=== PATIENT | male | born 1965 | race Caucasian/White ===

== ENCOUNTER 2021-07-03 09:23 | Inpatient (IN) | payer OTHER, SELFPAY ==
[2021-07-03] VITALS (7 sets, daily range): BP systolic 116–148; BP diastolic 46–104; PULSE 55–67; RESP 16–18; TEMP 36.1–36.7; O2SAT 98–100; BMI 26.4
--- NOTE | ~2021-07-03 | CT_ITS ---
EXAMINATION: CT ABDOMEN AND PELVIS WITH CONTRAST CLINICAL INFORMATION: Abdominal pain COMPARISON: None TECHNIQUE: Multidetector volumetric images were obtained from the superior aspect of the liver through the pubic symphysis following administration 85 mL of Omnipaque 350 intravenous contrast. Sagittal and coronal reformatted images were obtained on the technologist's workstation. Oral contrast: No This CT examination was performed using dose optimization techniques as appropriate, variously including the following: *Automated exposure control *Adjustment of mA and/or kV according to patient size (this includes techniques or standardized protocols for targeted exams where dose is matched to indication/reason for exam; i.e. extremities or head) *Use of iterative reconstruction technique DLP: 710 mGy-cm FINDINGS: LUNG BASES: The visualized lung bases are unremarkable. LIVER, GALLBLADDER, AND BILIARY TREE: The liver is normal in size, shape, and attenuation. No focal hepatic lesion or biliary ductal dilatation is present. The gallbladder is unremarkable with no evidence of radiopaque gallstones, gallbladder wall thickening, or obvious pericholecystic inflammatory changes. PANCREAS: Unremarkable. SPLEEN: Unremarkable. ADRENAL GLANDS: Unremarkable. KIDNEYS AND URETERS: The kidneys are normal in size, shape, and attenuation. No hydronephrosis, hydroureter, or calculi seen. No perinephric stranding. BLADDER: Unremarkable. GASTROINTESTINAL TRACT: There is prominent circumferential thickening of the rectum with nodular serosal surface and induration of the perirectal soft tissues. This measures at least 10 cm in length and extends distally to the anus. No perirectal fluid collection or pneumatosis. The ischial rectal fossa is unremarkable. There is no proximal obstruction. Scattered diverticula left and sigmoid colon is seen without diverticulitis. The appendix is normal. There is no ascites. ABDOMINAL WALL: No significant hernia is appreciated. LYMPH NODES: There is scattered nodularity in the perirectal soft tissues likely perirectal nodes measuring up to 1.0 cm on right and 0.7 cm. No retroperitoneal or iliac adenopathy. No inguinal adenopathy. VASCULAR: Unremarkable. PELVIC VISCERA: Mild fullness seminal vesicles. Prostate within normal size. OSSEOUS STRUCTURES: Unremarkable. Findings called to Dr. Lemon in the emergency department at [address]/CT abdomen pelvis w con IMPRESSION: 1. Prominent circumferential thickening around them with nodular serosal surface, induration of the perirectal soft tissues, and perirectal adenopathy. Findings may represent neoplasm with secondary inflammation or severe inflammatory proctitis. 2. No proximal obstruction, pneumatosis, free air, or fluid collection. 3. Liver and spleen normal. No retroperitoneal adenopathy. No ascites.
[2021-07-03 13:25] LABS: MANUAL DIFF FLAG NO
[2021-07-03 13:27] LABS: Basophils Absolute Auto 0.1 X10*3/uL (0.0-0.2); Basophils Percent Auto 1.3 % (0-2); Eosinophils Absolute Auto 0.2 X10*3/uL (0.0-0.4); Eosinophils Percent Auto 3.1 % (0-4); Imm Gran Abs Auto 0.02 X10*3/uL (0.00-0.03); Imm Gran Pct Auto 0.3 % (0.0-0.4); Lymphocytes Absolute Auto 1.2 X10*3/uL (1.2-4.9); Lymphocytes Percent Auto 18.6 % (20-40); Mean Corpuscular Hemoglobin 16.6 pg (27.0-33.0); Mean Platelet Volume 9.4 fL (9.4-12.4); Monocytes Absolute Auto 0.4 X10*3/uL (0.1-1.2); Monocytes Percent Auto 6.8 % (2-11); Neutrophils Absolute Auto 4.4 X10*3/uL (2.0-8.3); Neutrophils Percent Auto 69.9 % (45-73); Platelet Count 439 X10*3/uL (160-400); Red Blood Count 3.19 X10*6/uL (4.60-5.80); Red Cell Distribution Width 17.5 % (11.0-16.0); White Blood Count 6.2 X10*3/uL (4.8-10.8)
[2021-07-03 13:30] LABS: Glucose Urine UA NEG (NEG); Leukocyte Esterase Urine NEG (NEG); Nitrite Urine NEG (NEG); Urine Blood NEG (NEG); Urine Ketones NEG (NEG); Urine Protein NEG (NEG-TRACE)
[2021-07-03 13:31] LABS: Mean Corpuscular Volume 63.9 fL (80-98)
[2021-07-03 13:31] LABS: Appearance Urine CLEAR; Color Urine YELLOW
[2021-07-03 13:35] LABS: Hematocrit 20.4 % (42-52); Hemoglobin 5.3 g/dl (14.0-18.0)
[2021-07-03 13:44] LABS: Mucus Urine 1+ /LPF; RBC Urine 0-2 /HPF (0); WBC Urine 0-2 /HPF (0-4)
[2021-07-03 13:57] LABS: Alanine Aminotransferase < 6 U/L (0-40); Alkaline Phosphatase 75 U/L (39-117); Anion Gap 14 (12-20); Aspartate Amino Transferase 18 U/L (5-37); Bilirubin Direct < 0.2 mg/dL (0.0-0.5); Bilirubin Total < 0.2 mg/dL (0.0-1.0); Blood Urea Nitrogen 8 mg/dL (9-16); Calcium 8.7 mg/dL (8.4-10.2); Carbon Dioxide 23 mmol/L (22-29); Chloride 105 mmol/L (96-108); Creatinine Clr Calc Pharmacy 122.3; Estimated Glomerular Filt Rate > 60; Glucose Random 82 mg/dL (60-115); Lipase 27 U/L (8-78); Potassium 4.1 mmol/L (3.3-5.1); Sodium 138 mmol/L (135-145); Total Protein 6.6 g/dL (6.5-8.0)
--- NOTE | 2021-07-03 14:51 | PC.NURSE ---
patient a&ox3, vss, property assessment monitor applied sinus dulce 50s, pt awaiting provider, will continue to monitor.
--- NOTE | 2021-07-03 15:14 | ECG_ITS ---
Test Reason : MEDICAL Blood Pressure : / mmHG Vent. Rate : 062 BPM Atrial Rate : 062 BPM P-R Int : 164 ms QRS Dur : 094 ms QT Int : 432 ms P-R-T Axes : 046 014 016 degrees QTc Int : 438 ms Sinus rhythm with sinus arrhythmia with occasional Premature ventricular complexes Otherwise normal ECG No previous ECGs available Referred By: Annelise Lemon Electronically Signed By:MARY LOU MAHAN MD
[2021-07-03 15:18] LABS: OBS Int Ctl Valid YES; OBS1 POSITIVE (NEGATIVE)
--- NOTE | 2021-07-03 15:32 | ED_ITS ---
HPI - General Adult General Chief complaint: General Medical Stated complaint: Multiple complaints Time Seen by Provider: 07/03/21 12:43 History of Present Illness HPI narrative: 56-year-old male presented with generalized malaise weakness. Patient had had a history of irritable bowel syndrome. Has been using ibuprofen. Complaining of generalized malaise weakness. Sent in for further evaluation as he has diffuse abdominal pain generally weak. Unable to ambulate very well. Patient from home. No coughing or congestion or upper respiratory symptoms. No diaphoresis. Patient is from home. Patient also noted bloody stool. Related Data Home Medications Medication Instructions Recorded Confirmed sertraline 25 mg tablet 1 tab PO DAILY 07/03/21 07/03/21 Allergies Allergy/AdvReac Type Severity Reaction Status Date / Time No Known Allergies Allergy Verified 07/03/21 11:05 [No Known Allergies*] Review of Systems Review of Systems: Positive generalized malaise weakness No chest pain no palpitation No coughing congestion upper respiratory symptoms. Patient had his coronavirus vaccine x2 over 2 weeks ago No vomiting PMFSH Past Medical History Attestation statement: The following information was validated with the patient. Medical History HTN (hypertension) Social History Social History Alcohol intake: former Patient Tobacco Use Status: Current everyday Tobacco user Use of substances other than those prescribed or required for medical reasons: Yes Substance Use Type: Marijuana Substance Use Frequency: Occasionally Advance Directives: Yes Advance Directives Information Provided: Yes Advance Directives on File: No Physical Exam Vital Signs: Vital Signs: Last Vital Signs Temp 98.0 F 07/03/21 15:55 Pulse 61 07/03/21 15:55 Resp 16 07/03/21 15:55 BP 126/69 07/03/21 15:55 Pulse Ox 98 07/03/21 15:55 Body Mass Index 26.4 Appearance: Alert. Oriented X3. No acute distress. Eyes: Pupils equal, round and reactive to light. Pale conjunctiva bilaterally ENT: Pharynx normal. Neck: Normal inspection. Neck supple. No lymph nodes noted. No crepitus CVS: Normal heart rate and rhythm. Pulses normal. Normal S1 and S2 Respiratory: No respiratory distress. Breath sounds normal. No Wheezing. No rales Abdomen: Soft and nontender. No rigidity. No distention. good BS x4 Rectal exam done with nursing present. Positive bloody mucus Skin: Skin warm and dry. Normal skin color. Normal skin turgor. Extremities: No lower extremity edema. Neurovascular intact to all extremities. No Lacerations. No Rash Neuro: Oriented X 3. No motor deficit. No sensory deficit. Moving all extermities. No slurred speech Medical Decision Making MDM Narrative Medical decision making narrative: Patient's hemoglobin is 5. Extremely pale appearing. Likely the cause of patient's generalized malaise. With a long history of ibuprofen use most likely this is the cause of patient's anemia upper GI bleed. Will start patient on PPI. Will get CT scan of the abdomen to rule out the possibility of perforation. Will admit patient to the hospitalist service for further evaluation. Patient not on blood thinners. CT scan of the abdomen did not show any acute evidence of obstruction, abscess, perforation. It did show significant inflammation around the rectum. Question inflammatory bowel disease. Patient is being transfused. Pros incontinent transfusion discussed with patient consent obtained. Patient's case discussed with the hospitalist team for admission. Patient's BUN and creatinine is not consistent with upper GI bleed. Question inflammatory bowel disease causing patient's anemia. Case discussed with hospitalist team for admission. Lab Data Result diagrams: 07/03/21 13:14 07/03/21 13:14 Labs: Lab Results 07/03/21 07/03/21 07/03/21 Range/Units 13:14 13:14 13:20 WBC 6.2 (4.8-10.8) X10*3/uL RBC 3.19 L (4.60-5.80) X10*6/uL Hgb 5.3 L* (14.0-18.0) g/dl Hct 20.4 L* (42-52) % MCV 63.9 L (80-98) fL MCH 16.6 L (27.0-33.0) pg MCHC 26.0 L (31.0-36.0) g/dl RDW 17.5 H (11.0-16.0) % Plt Count 439 H (160-400) X10*3/uL MPV 9.4 (9.4-12.4) fL Immature Gran % (Auto) 0.3 (0.0-0.4) % Neut % (Auto) 69.9 (45-73) % Lymph % (Auto) 18.6 L (20-40) % [place] % (Auto) 6.8 (2-11) % Eos % (Auto) 3.1 (0-4) % Baso % (Auto) 1.3 (0-2) % Lymph # (Auto) 1.2 (1.2-4.9) X10*3/uL [place] # (Auto) 0.4 (0.1-1.2) X10*3/uL Eos # (Auto) 0.2 (0.0-0.4) X10*3/uL Baso # (Auto) 0.1 (0.0-0.2) X10*3/uL Abs Immat Gran (auto) 0.02 (0.00-0.03) X10*3/uL Absolute Neuts (auto) 4.4 (2.0-8.3) X10*3/uL Absolute Nucleated RBC 0.000 (0.0-0.012) X10*3/uL Nucleated RBC % (auto) 0.0 (0.0-0.2) /100WBC Sodium 138 (135-145) mmol/L Potassium 4.1 (3.3-5.1) mmol/L Chloride 105 (96-108) mmol/L Carbon Dioxide 23 (22-29) mmol/L Anion Gap 14 (12-20) BUN 8 L (9-16) mg/dL Creatinine 0.74 (0.5-1.4) mg/dL Estim Creat Clear Calc 122.3 Estimated GFR > 60 Random Glucose 82 (60-115) mg/dL Calcium 8.7 (8.4-10.2) mg/dL Total Bilirubin < 0.2 (0.0-1.0) mg/dL Direct Bilirubin < 0.2 (0.0-0.5) mg/dL AST 18 (5-37) U/L ALT < 6 (0-40) U/L Alkaline Phosphatase 75 (39-117) U/L Total Protein 6.6 (6.5-8.0) g/dL Albumin 4.0 (3.5-5.0) g/dL Lipase 27 (8-78) U/L Urine Color YELLOW Urine Appearance CLEAR Urine pH 6.0 (5.0-8.0) Ur Specific [place] 1.020 (1.005-1.025) Urine Protein NEG (NEG-TRACE) MG/DL Urine Glucose (UA) NEG (NEG) MG/DL Urine Ketones NEG (NEG) MG/DL Urine Blood NEG (NEG) Urine Nitrite NEG (NEG) Ur Leukocyte Esterase NEG (NEG) Urine RBC 0-2 (0) /HPF Urine WBC 0-2 (0-4) /HPF Ur Squamous Epith Cells NONE /LPF Urine Bacteria NONE /LPF Urine Mucus 1+ /LPF Stool Occult Blood (NEGATIVE) Coronavirus (PCR) (Negative) Influenza Type A (PCR) (Negative) Influenza Type B (PCR) (Negative) RSV RNA Qual (PCR) (Negative) Blood Type Antibody Screen Crossmatch 07/03/21 07/03/21 07/03/21 Range/Units 15:12 15:21 16:04 WBC (4.8-10.8) X10*3/uL RBC (4.60-5.80) X10*6/uL Hgb (14.0-18.0) g/dl Hct (42-52) % MCV (80-98) fL MCH (27.0-33.0) pg MCHC (31.0-36.0) g/dl RDW (11.0-16.0) % Plt Count (160-400) X10*3/uL MPV (9.4-12.4) fL Immature Gran % (Auto) (0.0-0.4) % Neut % (Auto) (45-73) % Lymph % (Auto) (20-40) % [place] % (Auto) (2-11) % Eos % (Auto) (0-4) % Baso % (Auto) (0-2) % Lymph # (Auto) (1.2-4.9) X10*3/uL [place] # (Auto) (0.1-1.2) X10*3/uL Eos # (Auto) (0.0-0.4) X10*3/uL Baso # (Auto) (0.0-0.2) X10*3/uL Abs Immat Gran (auto) (0.00-0.03) X10*3/uL Absolute Neuts (auto) (2.0-8.3) X10*3/uL Absolute Nucleated RBC (0.0-0.012) X10*3/uL Nucleated RBC % (auto) (0.0-0.2) /100WBC Sodium (135-145) mmol/L Potassium (3.3-5.1) mmol/L Chloride (96-108) mmol/L Carbon Dioxide (22-29) mmol/L Anion Gap (12-20) BUN (9-16) mg/dL Creatinine (0.5-1.4) mg/dL Estim Creat Clear Calc Estimated GFR Random Glucose (60-115) mg/dL Calcium (8.4-10.2) mg/dL Total Bilirubin (0.0-1.0) mg/dL Direct Bilirubin (0.0-0.5) mg/dL AST (5-37) U/L ALT (0-40) U/L Alkaline Phosphatase (39-117) U/L Total Protein (6.5-8.0) g/dL Albumin (3.5-5.0) g/dL Lipase 25 (8-78) U/L Urine Color Urine Appearance Urine pH (5.0-8.0) Ur Specific [place] (1.005-1.025) Urine Protein (NEG-TRACE) MG/DL Urine Glucose (UA) (NEG) MG/DL Urine Ketones (NEG) MG/DL Urine Blood (NEG) Urine Nitrite (NEG) Ur Leukocyte Esterase (NEG) Urine RBC (0) /HPF Urine WBC (0-4) /HPF Ur Squamous Epith Cells /LPF Urine Bacteria /LPF Urine Mucus /LPF Stool Occult Blood POSITIVE (NEGATIVE) Coronavirus (PCR) NEGATIVE (Negative) Influenza Type A (PCR) NEGATIVE (Negative) Influenza Type B (PCR) NEGATIVE (Negative) RSV RNA Qual (PCR) NEGATIVE (Negative) Blood Type Antibody Screen Crossmatch 07/03/21 Range/Units 16:04 WBC (4.8-10.8) X10*3/uL RBC (4.60-5.80) X10*6/uL Hgb (14.0-18.0) g/dl Hct (42-52) % MCV (80-98) fL MCH (27.0-33.0) pg MCHC (31.0-36.0) g/dl RDW (11.0-16.0) % Plt Count (160-400) X10*3/uL MPV (9.4-12.4) fL Immature Gran % (Auto) (0.0-0.4) % Neut % (Auto) (45-73) % Lymph % (Auto) (20-40) % [place] % (Auto) (2-11) % Eos % (Auto) (0-4) % Baso % (Auto) (0-2) % Lymph # (Auto) (1.2-4.9) X10*3/uL [place] # (Auto) (0.1-1.2) X10*3/uL Eos # (Auto) (0.0-0.4) X10*3/uL Baso # (Auto) (0.0-0.2) X10*3/uL Abs Immat Gran (auto) (0.00-0.03) X10*3/uL Absolute Neuts (auto) (2.0-8.3) X10*3/uL Absolute Nucleated RBC (0.0-0.012) X10*3/uL Nucleated RBC % (auto) (0.0-0.2) /100WBC Sodium (135-145) mmol/L Potassium (3.3-5.1) mmol/L Chloride (96-108) mmol/L Carbon Dioxide (22-29) mmol/L Anion Gap (12-20) BUN (9-16) mg/dL Creatinine (0.5-1.4) mg/dL Estim Creat Clear Calc Estimated GFR Random Glucose (60-115) mg/dL Calcium (8.4-10.2) mg/dL Total Bilirubin (0.0-1.0) mg/dL Direct Bilirubin (0.0-0.5) mg/dL AST (5-37) U/L ALT (0-40) U/L Alkaline Phosphatase (39-117) U/L Total Protein (6.5-8.0) g/dL Albumin (3.5-5.0) g/dL Lipase (8-78) U/L Urine Color Urine Appearance Urine pH (5.0-8.0) Ur Specific [place] (1.005-1.025) Urine Protein (NEG-TRACE) MG/DL Urine Glucose (UA) (NEG) MG/DL Urine Ketones (NEG) MG/DL Urine Blood (NEG) Urine Nitrite (NEG) Ur Leukocyte Esterase (NEG) Urine RBC (0) /HPF Urine WBC (0-4) /HPF Ur Squamous Epith Cells /LPF Urine Bacteria /LPF Urine Mucus /LPF Stool Occult Blood (NEGATIVE) Coronavirus (PCR) (Negative) Influenza Type A (PCR) (Negative) Influenza Type B (PCR) (Negative) RSV RNA Qual (PCR) (Negative) Blood Type A Positive Antibody Screen NEGATIVE Crossmatch See Detail Discharge Plan Discharge Clinical Impression: Anemia, Acute GI bleeding Patient Disposition: Admitted As Inpatient Prescriptions: No Action sertraline 25 mg tablet 1 tab PO DAILY RF: 0
--- NOTE | 2021-07-03 15:35 | PC.NURSE ---
pt to ct scan
[2021-07-03] MEDS: iohexoL 350 MG/ML 100 ML INFUS..BTL IV (15:48)
[2021-07-03] MEDS: Pantoprazole Sodium 40 MG/10 ML VIAL IVPUSH (15:48)
--- NOTE | 2021-07-03 16:00 | PC.NURSE ---
iv inserted, ekg performed
[2021-07-03 16:11] LABS: Influenza A PCR NEGATIVE (Negative); Influenza B PCR NEGATIVE (Negative); Resp Syncy Virus RNA Qual PCR NEGATIVE (Negative); SARS COV2 PCR INHOUSE NEGATIVE (Negative)
[2021-07-03 16:34] LABS: Lipase 25 U/L (8-78)
--- NOTE | 2021-07-03 17:08 | ED.GENADULT ---
HPI - General Adult General Chief complaint: General Medical Stated complaint: Multiple complaints Time Seen by Provider: 07/03/21 12:43 Related Data Home Medications Medication Instructions Recorded Confirmed sertraline 25 mg tablet 1 tab PO DAILY 07/03/21 07/03/21 Allergies Allergy/AdvReac Type Severity Reaction Status Date / Time No Known Allergies Allergy Verified 07/03/21 11:05 [No Known Allergies*] [facility] Past Medical History Medical History HTN (hypertension) Social History Social History Alcohol intake: former Patient Tobacco Use Status: Current everyday Tobacco user Use of substances other than those prescribed or required for medical reasons: Yes Substance Use Type: Marijuana Substance Use Frequency: Occasionally Advance Directives: Yes Advance Directives Information Provided: Yes Advance Directives on File: No Physical Exam Vital Signs: Vital Signs: Last Vital Signs Temp 98.0 F 07/03/21 15:55 Pulse 61 07/03/21 15:55 Resp 16 07/03/21 15:55 BP 126/69 07/03/21 15:55 Pulse Ox 98 07/03/21 15:55 Body Mass Index 26.4 Medical Decision Making Lab Data Result diagrams: 07/03/21 13:14 07/03/21 13:14 Labs: Lab Results 07/03/21 07/03/21 07/03/21 Range/Units 13:14 13:14 13:20 WBC 6.2 (4.8-10.8) X10*3/uL RBC 3.19 L (4.60-5.80) X10*6/uL Hgb 5.3 L* (14.0-18.0) g/dl Hct 20.4 L* (42-52) % MCV 63.9 L (80-98) fL MCH 16.6 L (27.0-33.0) pg MCHC 26.0 L (31.0-36.0) g/dl RDW 17.5 H (11.0-16.0) % Plt Count 439 H (160-400) X10*3/uL MPV 9.4 (9.4-12.4) fL Immature Gran % (Auto) 0.3 (0.0-0.4) % Neut % (Auto) 69.9 (45-73) % Lymph % (Auto) 18.6 L (20-40) % [place] % (Auto) 6.8 (2-11) % Eos % (Auto) 3.1 (0-4) % Baso % (Auto) 1.3 (0-2) % Lymph # (Auto) 1.2 (1.2-4.9) X10*3/uL [place] # (Auto) 0.4 (0.1-1.2) X10*3/uL Eos # (Auto) 0.2 (0.0-0.4) X10*3/uL Baso # (Auto) 0.1 (0.0-0.2) X10*3/uL Abs Immat Gran (auto) 0.02 (0.00-0.03) X10*3/uL Absolute Neuts (auto) 4.4 (2.0-8.3) X10*3/uL Absolute Nucleated RBC 0.000 (0.0-0.012) X10*3/uL Nucleated RBC % (auto) 0.0 (0.0-0.2) /100WBC Sodium 138 (135-145) mmol/L Potassium 4.1 (3.3-5.1) mmol/L Chloride 105 (96-108) mmol/L Carbon Dioxide 23 (22-29) mmol/L Anion Gap 14 (12-20) BUN 8 L (9-16) mg/dL Creatinine 0.74 (0.5-1.4) mg/dL Estim Creat Clear Calc 122.3 Estimated GFR > 60 Random Glucose 82 (60-115) mg/dL Calcium 8.7 (8.4-10.2) mg/dL Total Bilirubin < 0.2 (0.0-1.0) mg/dL Direct Bilirubin < 0.2 (0.0-0.5) mg/dL AST 18 (5-37) U/L ALT < 6 (0-40) U/L Alkaline Phosphatase 75 (39-117) U/L Total Protein 6.6 (6.5-8.0) g/dL Albumin 4.0 (3.5-5.0) g/dL Lipase 27 (8-78) U/L Urine Color YELLOW Urine Appearance CLEAR Urine pH 6.0 (5.0-8.0) Ur Specific [place] 1.020 (1.005-1.025) Urine Protein NEG (NEG-TRACE) MG/DL Urine Glucose (UA) NEG (NEG) MG/DL Urine Ketones NEG (NEG) MG/DL Urine Blood NEG (NEG) Urine Nitrite NEG (NEG) Ur Leukocyte Esterase NEG (NEG) Urine RBC 0-2 (0) /HPF Urine WBC 0-2 (0-4) /HPF Ur Squamous Epith Cells NONE /LPF Urine Bacteria NONE /LPF Urine Mucus 1+ /LPF Stool Occult Blood (NEGATIVE) Coronavirus (PCR) (Negative) Influenza Type A (PCR) (Negative) Influenza Type B (PCR) (Negative) RSV RNA Qual (PCR) (Negative) Blood Type Antibody Screen Crossmatch 07/03/21 07/03/21 07/03/21 Range/Units 15:12 15:21 16:04 WBC (4.8-10.8) X10*3/uL RBC (4.60-5.80) X10*6/uL Hgb (14.0-18.0) g/dl Hct (42-52) % MCV (80-98) fL MCH (27.0-33.0) pg MCHC (31.0-36.0) g/dl RDW (11.0-16.0) % Plt Count (160-400) X10*3/uL MPV (9.4-12.4) fL Immature Gran % (Auto) (0.0-0.4) % Neut % (Auto) (45-73) % Lymph % (Auto) (20-40) % [place] % (Auto) (2-11) % Eos % (Auto) (0-4) % Baso % (Auto) (0-2) % Lymph # (Auto) (1.2-4.9) X10*3/uL [place] # (Auto) (0.1-1.2) X10*3/uL Eos # (Auto) (0.0-0.4) X10*3/uL Baso # (Auto) (0.0-0.2) X10*3/uL Abs Immat Gran (auto) (0.00-0.03) X10*3/uL Absolute Neuts (auto) (2.0-8.3) X10*3/uL Absolute Nucleated RBC (0.0-0.012) X10*3/uL Nucleated RBC % (auto) (0.0-0.2) /100WBC Sodium (135-145) mmol/L Potassium (3.3-5.1) mmol/L Chloride (96-108) mmol/L Carbon Dioxide (22-29) mmol/L Anion Gap (12-20) BUN (9-16) mg/dL Creatinine (0.5-1.4) mg/dL Estim Creat Clear Calc Estimated GFR Random Glucose (60-115) mg/dL Calcium (8.4-10.2) mg/dL Total Bilirubin (0.0-1.0) mg/dL Direct Bilirubin (0.0-0.5) mg/dL AST (5-37) U/L ALT (0-40) U/L Alkaline Phosphatase (39-117) U/L Total Protein (6.5-8.0) g/dL Albumin (3.5-5.0) g/dL Lipase 25 (8-78) U/L Urine Color Urine Appearance Urine pH (5.0-8.0) Ur Specific [place] (1.005-1.025) Urine Protein (NEG-TRACE) MG/DL Urine Glucose (UA) (NEG) MG/DL Urine Ketones (NEG) MG/DL Urine Blood (NEG) Urine Nitrite (NEG) Ur Leukocyte Esterase (NEG) Urine RBC (0) /HPF Urine WBC (0-4) /HPF Ur Squamous Epith Cells /LPF Urine Bacteria /LPF Urine Mucus /LPF Stool Occult Blood POSITIVE (NEGATIVE) Coronavirus (PCR) NEGATIVE (Negative) Influenza Type A (PCR) NEGATIVE (Negative) Influenza Type B (PCR) NEGATIVE (Negative) RSV RNA Qual (PCR) NEGATIVE (Negative) Blood Type Antibody Screen Crossmatch 07/03/21 Range/Units 16:04 WBC (4.8-10.8) X10*3/uL RBC (4.60-5.80) X10*6/uL Hgb (14.0-18.0) g/dl Hct (42-52) % MCV (80-98) fL MCH (27.0-33.0) pg MCHC (31.0-36.0) g/dl RDW (11.0-16.0) % Plt Count (160-400) X10*3/uL MPV (9.4-12.4) fL Immature Gran % (Auto) (0.0-0.4) % Neut % (Auto) (45-73) % Lymph % (Auto) (20-40) % [place] % (Auto) (2-11) % Eos % (Auto) (0-4) % Baso % (Auto) (0-2) % Lymph # (Auto) (1.2-4.9) X10*3/uL [place] # (Auto) (0.1-1.2) X10*3/uL Eos # (Auto) (0.0-0.4) X10*3/uL Baso # (Auto) (0.0-0.2) X10*3/uL Abs Immat Gran (auto) (0.00-0.03) X10*3/uL Absolute Neuts (auto) (2.0-8.3) X10*3/uL Absolute Nucleated RBC (0.0-0.012) X10*3/uL Nucleated RBC % (auto) (0.0-0.2) /100WBC Sodium (135-145) mmol/L Potassium (3.3-5.1) mmol/L Chloride (96-108) mmol/L Carbon Dioxide (22-29) mmol/L Anion Gap (12-20) BUN (9-16) mg/dL Creatinine (0.5-1.4) mg/dL Estim Creat Clear Calc Estimated GFR Random Glucose (60-115) mg/dL Calcium (8.4-10.2) mg/dL Total Bilirubin (0.0-1.0) mg/dL Direct Bilirubin (0.0-0.5) mg/dL AST (5-37) U/L ALT (0-40) U/L Alkaline Phosphatase (39-117) U/L Total Protein (6.5-8.0) g/dL Albumin (3.5-5.0) g/dL Lipase (8-78) U/L Urine Color Urine Appearance Urine pH (5.0-8.0) Ur Specific [place] (1.005-1.025) Urine Protein (NEG-TRACE) MG/DL Urine Glucose (UA) (NEG) MG/DL Urine Ketones (NEG) MG/DL Urine Blood (NEG) Urine Nitrite (NEG) Ur Leukocyte Esterase (NEG) Urine RBC (0) /HPF Urine WBC (0-4) /HPF Ur Squamous Epith Cells /LPF Urine Bacteria /LPF Urine Mucus /LPF Stool Occult Blood (NEGATIVE) Coronavirus (PCR) (Negative) Influenza Type A (PCR) (Negative) Influenza Type B (PCR) (Negative) RSV RNA Qual (PCR) (Negative) Blood Type A Positive Antibody Screen NEGATIVE Crossmatch See Detail Critical Care Time Critical Care Time Critical Care Time: Yes Total Critical Care Time: 40 Attestation: I have personally provided 40 minutes of critical care time exclusive of time spent on separately billable procedures. Time includes review of lab data, radiology results, discussion with consultants, and monitoring for potential decompensation. Interventions were performed as documented above Discharge Plan Discharge Clinical Impression: Anemia, Acute GI bleeding Patient Disposition: Admitted As Inpatient
--- NOTE | 2021-07-03 17:09 | P.HPHOSP_ITS ---
History of Present Illness Date of Service: 07/03/21 56 year old male with anxiety, HTN no longer on meds who presents to the ED with blood bowel movment, and typically has to have bowel moment shortly eating. He has been taking Ibuprofen 400 mg 3 to 4 times a day for a few month to treat nerve pain around rectal area. He has lost nearly 50 Ib over the course of year, some of it has been intentional. No prior colonoscopy. No abdominal pain, no fever. Review of Systems Review of Systems: Gen: no fever Resp: no sob, no cough CV: no chest, no FORREST, no leg edema GI: No n/v, no abd pain, bloofy bowel movment ss above Neuro: No confusion Yes all other systems are reviewed and are negative [facility] Medical History (Updated 07/03/21 @ 17:47 by Yosi Desai MD) Anxiety HTN (hypertension) Neuropathy Pertinent family history: No colon cancer, no IBD Social History Household Members: Other Housing: House Do you presently have visiting nurse or other home services: No Alcohol intake: former Patient Tobacco Use Status: Current everyday Tobacco user Tobacco use type: Cigarette Smoked in Last 30 Days: Yes Patient Interested in Nicotine Replacement: No (not at the moment) Patient Given Instructions on How to Stop Smoking: No (refused) Use of substances other than those prescribed or required for medical reasons: Yes Substance Use Type: Marijuana Substance Use Frequency: Weekly Currently Displaying Signs/Symptoms of Drug Intoxication Withdrawal: No Have you been hit, kicked, punched, or otherwise hurt by someone within the past year? If so, by whom?: No Do you feel safe in your current relationship?: Yes Is there a partner from a previous relationship who is making you feel unsafe now?: No Are you made to feel afraid or neglected: No Advance Directives: Yes Advance Directives Information Provided: Yes Advance Directives on File: No (not on file) Advance Directives Date on File: 07/03/21 Do you have thoughts of harming others: None Do you have a plan to hurt others: No Plan service: No Current occupational status: employed Meds Allergies Allergy/AdvReac Type Severity Reaction Status Date / Time No Known Allergies Allergy Verified 07/03/21 11:05 [No Known Allergies*] Active Medications: Current Medications Generic Name Dose Route Start Last Admin Trade Name Isis PRN Reason Stop Dose Admin Pantoprazole Sodium 40 mg 07/04/21 06:30 Pantoprazole Sodium 40 Mg/10 Ml Vial IVPUSH [id number] [facility] Pharmacy Consult 1 each 07/03/21 15:16 Consult Rx Perform Med Rec MISCELLANE ONCE PRN Consult order Home Medications Medication Instructions Recorded Confirmed Last Taken Type sertraline 25 mg tablet 1 tab PO DAILY 07/03/21 07/03/21 Unknown History Physical Exam Vital Signs and Narrative: Vital Signs: Last Vital Signs Temp 98.0 F 07/03/21 15:55 Pulse 61 07/03/21 15:55 Resp 16 07/03/21 15:55 BP 126/69 07/03/21 15:55 Pulse Ox 98 07/03/21 15:55 Body Mass Index 26.4 Constitutional Awake and Alert, No apparent distress HEENT PERRLA Neck Supple, No lymphadenopathy Cardiovascular RRR, No M/R/G, S1 S2, No S3 S4, No pedal edema Respiratory Lungs clear, No respiratory distress Gastrointestinal Non tender, Non-distended Skin No rash Neurological Alert & oriented x3 Psychological Appropriate affect Results Labs CBC and Chem 7: 07/04/21 06:52 07/03/21 13:14 Labs: Laboratory Results - last 24 hr 07/03/21 07/03/21 07/03/21 13:14 13:14 13:20 MCV 63.9 L MCH 16.6 L MCHC 26.0 L RDW 17.5 H Plt Count 439 H MPV 9.4 Immature Gran % (Auto) 0.3 Neut % (Auto) 69.9 Lymph % (Auto) 18.6 L [place] % (Auto) 6.8 Eos % (Auto) 3.1 Baso % (Auto) 1.3 Lymph # (Auto) 1.2 [place] # (Auto) 0.4 Eos # (Auto) 0.2 Baso # (Auto) 0.1 Abs Immat Gran (auto) 0.02 Absolute Neuts (auto) 4.4 Absolute Nucleated RBC 0.000 Nucleated RBC % (auto) 0.0 Anion Gap 14 Estim Creat Clear Calc 122.3 Estimated GFR > 60 Random Glucose 82 Calcium 8.7 Total Bilirubin < 0.2 Direct Bilirubin < 0.2 AST 18 ALT < 6 Alkaline Phosphatase 75 Total Protein 6.6 Albumin 4.0 Lipase 27 Urine Color YELLOW Urine Appearance CLEAR Urine pH 6.0 Ur Specific [place] 1.020 Urine Protein NEG Urine Glucose (UA) NEG Urine Ketones NEG Urine Blood NEG Urine Nitrite NEG Ur Leukocyte Esterase NEG Urine RBC 0-2 Urine WBC 0-2 Ur Squamous Epith Cells NONE Urine Bacteria NONE Urine Mucus 1+ Stool Occult Blood Coronavirus (PCR) Influenza Type A (PCR) Influenza Type B (PCR) RSV RNA Qual (PCR) Blood Type Antibody Screen Crossmatch 07/03/21 07/03/21 07/03/21 15:12 15:21 16:04 MCV MCH MCHC RDW Plt Count MPV Immature Gran % (Auto) Neut % (Auto) Lymph % (Auto) [place] % (Auto) Eos % (Auto) Baso % (Auto) Lymph # (Auto) [place] # (Auto) Eos # (Auto) Baso # (Auto) Abs Immat Gran (auto) Absolute Neuts (auto) Absolute Nucleated RBC Nucleated RBC % (auto) Anion Gap Estim Creat Clear Calc Estimated GFR Random Glucose Calcium Total Bilirubin Direct Bilirubin AST ALT Alkaline Phosphatase Total Protein Albumin Lipase 25 Urine Color Urine Appearance Urine pH Ur Specific [place] Urine Protein Urine Glucose (UA) Urine Ketones Urine Blood Urine Nitrite Ur Leukocyte Esterase Urine RBC Urine WBC Ur Squamous Epith Cells Urine Bacteria Urine Mucus Stool Occult Blood POSITIVE Coronavirus (PCR) NEGATIVE Influenza Type A (PCR) NEGATIVE Influenza Type B (PCR) NEGATIVE RSV RNA Qual (PCR) NEGATIVE Blood Type Antibody Screen Crossmatch 07/03/21 16:04 MCV MCH MCHC RDW Plt Count MPV Immature Gran % (Auto) Neut % (Auto) Lymph % (Auto) [place] % (Auto) Eos % (Auto) Baso % (Auto) Lymph # (Auto) [place] # (Auto) Eos # (Auto) Baso # (Auto) Abs Immat Gran (auto) Absolute Neuts (auto) Absolute Nucleated RBC Nucleated RBC % (auto) Anion Gap Estim Creat Clear Calc Estimated GFR Random Glucose Calcium Total Bilirubin Direct Bilirubin AST ALT Alkaline Phosphatase Total Protein Albumin Lipase Urine Color Urine Appearance Urine pH Ur Specific [place] Urine Protein Urine Glucose (UA) Urine Ketones Urine Blood Urine Nitrite Ur Leukocyte Esterase Urine RBC Urine WBC Ur Squamous Epith Cells Urine Bacteria Urine Mucus Stool Occult Blood Coronavirus (PCR) Influenza Type A (PCR) Influenza Type B (PCR) RSV RNA Qual (PCR) Blood Type A Positive Antibody Screen NEGATIVE Crossmatch See Detail Imaging Radiologist's Impressions: Impressions Abdomen/Pelvis CT 07/03/21 15:14 IMPRESSION: 1. Prominent circumferential thickening around them with nodular serosal surface, induration of the perirectal soft tissues, and perirectal adenopathy. Findings may represent neoplasm with secondary inflammation or severe inflammatory proctitis. 2. No proximal obstruction, pneumatosis, free air, or fluid collection. 3. Liver and spleen normal. No retroperitoneal adenopathy. No ascites. Assessment and Plan (1) Acute GI bleeding: Status: Acute (2) Acute blood loss anemia: Status: Acute 56 year old male with frquent mucusy, bloodybowel movement and found to have severe anemia, Hgb of 5, likely has 1/GIB 2/acute blood loss anemia--Microcytic type 3/IBD plan 1/Transfuse 2/check Cdif, stool studies 2/Iron studies, B12, folate 3/ GI consult--likely EGB and colonscopy 4/No NSAID 5/IV protonix 6/Hydrate Quality Stroke Does the patient have a stroke diagnosis?: No VTE Prior VTE?: No VTE Risk Level:: Medical - moderate - high VTE Device Contraindication: N/A - Device Ordered VTE Drug Contraindication: Treatment Not Tolerated
[2021-07-03 17:21] LABS: C Reactive Protein 0.33 mg/dL (< or = 0.50)
--- NOTE | 2021-07-03 17:55 | PC.NURSE ---
patient a&ox3, vss, manufacturing engineer automotive sinus dulce, blood running per order, pt tolerating well, will continue to monitor.
[2021-07-03 18:18] LABS: Folate 9.1 ng/mL (> or = 4.0); Vitamin B12 263 pg/mL (200-900)
[2021-07-03 18:29] LABS: Iron 7 mcg/dL (45-160); Percent Iron Saturation 2 % (15-50); Total Iron Binding Capacity 446 mcg/dL (228-428); Unsaturated Iron Binding 439 ug/dL
[2021-07-03 18:49] LABS: Thyroid Stimulating Hormone 1.46 uIU/mL (0.32-4.0)
--- NOTE | 2021-07-03 18:51 | PC.NURSE ---
attempted to call floor, no answer
--- NOTE | 2021-07-03 19:33 | PC.NURSE ---
report given to floor
--- NOTE | 2021-07-03 19:56 | MHC.CM.PN ---
Cm met with admitted pt, with bed pending. Address and insurance verified. Changes given to commercial loan coordinator. PCP is Dr. Guzmán at [facility]. HCP reviewed, completed and signed. HCP/friend Lena Mcknight ([phone]). Uploaded into [facility] and [employer]. Copies given to pt. D/C plan is home without services. Transportation to be arranged by pt. CM to follow for d/c needs.
[2021-07-03] MEDS: Dextrose 5 % and 0.45 % NaCl 1,000 ML 100 ML IVCONT (21:36)
[2021-07-03] MEDS: Morphine Sulfate 2 MG/ML CARTRIDGE IVPUSH (22:05)
[2021-07-04] VITALS (14 sets, daily range): BP systolic 98–129; BP diastolic 35–65; PULSE 46–57; RESP 14–18; TEMP 35.7–36.7; O2SAT 99–100
[2021-07-04] MEDS: Morphine Sulfate 2 MG/ML CARTRIDGE IVPUSH ×5 (03:26→23:36)
[2021-07-04 05:25] LABS: CDiff Gene PCR NEGATIVE (Negative)
[2021-07-04] MEDS: Pantoprazole Sodium 40 MG/10 ML VIAL IVPUSH ×2 (05:29→15:42)
[2021-07-04] MEDS: Dextrose 5 % and 0.45 % NaCl 1,000 ML 100 ML IVCONT ×3 (05:31→21:44)
[2021-07-04 05:36] LABS: Leukocytes Stool Qualitative MANY: >10/OIF (NEGATIVE)
[2021-07-04 07:26] LABS: Mean Corpuscular HGB Conc 27.1 g/dl (31.0-36.0); Mean Corpuscular Hemoglobin 17.8 pg (27.0-33.0); Mean Corpuscular Volume 65.5 fL (80-98); Mean Platelet Volume 9.2 fL (9.4-12.4); Platelet Count 319 X10*3/uL (160-400); Red Blood Count 2.87 X10*6/uL (4.60-5.80); Red Cell Distribution Width 19.7 % (11.0-16.0); White Blood Count 5.1 X10*3/uL (4.8-10.8)
[2021-07-04 07:42] LABS: Hemoglobin 5.1 g/dl (14.0-18.0)
[2021-07-04 07:43] LABS: Hematocrit 18.8 % (42-52)
--- NOTE | 2021-07-04 08:40 | P.PNIM_ITS ---
Subjective Subjective Date of Service: 07/04/21 Interval History: Seen in f/u for iron def anemia, gib withs severe gib, no active bleed Review of Systems Gen: no fever Resp: no sob, no cough CV: no chest, no FORREST, no leg edema GI: No n/v, no abd pain, bloofy bowel movment ss above Neuro: No confusion Physical Exam Vital Signs: Vital Signs: Last Vital Signs Temp 97.5 F 07/04/21 07:24 Pulse 50 07/04/21 07:24 Resp 18 07/04/21 07:24 BP 111/63 07/04/21 07:24 Pulse Ox 100 07/04/21 07:24 Body Mass Index 26.4 General: AO X 3, no acute distress Resp: CTA bilateral CVS: S1,S2,RRR GI: +BS, NT, no distention Skin: No rash Neuro: motor grossly intact Psych: appropriate affect Objective Data Current Medications Generic Name Dose Route Start Last Admin Trade Name Freq PRN Reason Stop Dose Admin Dextrose/Sodium Chloride 1,000 mls @ 100 mls/hr 07/03/21 17:45 07/04/21 05:31 D51/2ns IVCONT 100 mls/hr .Q10H ROXANE Administration Morphine Sulfate 2 mg 07/03/21 17:34 07/04/21 07:34 Morphine Sulfate 2 Mg/Ml Cartridge IVPUSH 2 mg Q4H PRN Administration Pain, Severe (Pain Scale 7-10) Protocol Pantoprazole Sodium 40 mg 07/04/21 06:30 07/04/21 05:29 Pantoprazole Sodium 40 Mg/10 Ml Vial IVPUSH 40 mg BID@[id number] [facility] Administration Pharmacy Consult 1 each 07/03/21 15:16 Consult Rx Perform Med Rec MISCELLANE ONCE PRN Consult order Sodium Chloride 3 ml 07/04/21 00:00 07/04/21 07:30 0.9 % Sodium Chloride Flush 3 Ml Syringe IVFLUSH Not Given QSHIFT [facility] Labs CBC & Chem 7: 07/04/21 06:52 07/03/21 13:14 Labs: Laboratory Results - last 24 hr 07/03/21 07/03/21 07/03/21 13:14 13:14 13:20 MCV 63.9 L MCH 16.6 L MCHC 26.0 L RDW 17.5 H Plt Count 439 H MPV 9.4 Immature Gran % (Auto) 0.3 Neut % (Auto) 69.9 Lymph % (Auto) 18.6 L [place] % (Auto) 6.8 Eos % (Auto) 3.1 Baso % (Auto) 1.3 Lymph # (Auto) 1.2 [place] # (Auto) 0.4 Eos # (Auto) 0.2 Baso # (Auto) 0.1 Abs Immat Gran (auto) 0.02 Absolute Neuts (auto) 4.4 Absolute Nucleated RBC 0.000 Nucleated RBC % (auto) 0.0 Anion Gap 14 Estim Creat Clear Calc 122.3 Estimated GFR > 60 Random Glucose 82 Calcium 8.7 Iron TIBC % Saturation Unsat Iron Binding Total Bilirubin < 0.2 Direct Bilirubin < 0.2 AST 18 ALT < 6 Alkaline Phosphatase 75 C-Reactive Protein 0.33 Total Protein 6.6 Albumin 4.0 Lipase 27 Vitamin B12 Folate TSH Urine Color YELLOW Urine Appearance CLEAR Urine pH 6.0 Ur Specific [place] 1.020 Urine Protein NEG Urine Glucose (UA) NEG Urine Ketones NEG Urine Blood NEG Urine Nitrite NEG Ur Leukocyte Esterase NEG Urine RBC 0-2 Urine WBC 0-2 Ur Squamous Epith Cells NONE Urine Bacteria NONE Urine Mucus 1+ Stool Occult Blood Stool Leukocytes, Qual C. difficile Tox B Gene Coronavirus (PCR) Influenza Type A (PCR) Influenza Type B (PCR) RSV RNA Qual (PCR) Blood Type Antibody Screen Crossmatch 07/03/21 07/03/21 07/03/21 15:12 15:21 16:04 MCV MCH MCHC RDW Plt Count MPV Immature Gran % (Auto) Neut % (Auto) Lymph % (Auto) [place] % (Auto) Eos % (Auto) Baso % (Auto) Lymph # (Auto) [place] # (Auto) Eos # (Auto) Baso # (Auto) Abs Immat Gran (auto) Absolute Neuts (auto) Absolute Nucleated RBC Nucleated RBC % (auto) Anion Gap Estim Creat Clear Calc Estimated GFR Random Glucose Calcium Iron 7 L TIBC 446 H % Saturation 2 L Unsat Iron Binding 439 Total Bilirubin Direct Bilirubin AST ALT Alkaline Phosphatase C-Reactive Protein Total Protein Albumin Lipase 25 Vitamin B12 Folate TSH 1.46 Urine Color Urine Appearance Urine pH Ur Specific [place] Urine Protein Urine Glucose (UA) Urine Ketones Urine Blood Urine Nitrite Ur Leukocyte Esterase Urine RBC Urine WBC Ur Squamous Epith Cells Urine Bacteria Urine Mucus Stool Occult Blood POSITIVE Stool Leukocytes, Qual C. difficile Tox B Gene Coronavirus (PCR) NEGATIVE Influenza Type A (PCR) NEGATIVE Influenza Type B (PCR) NEGATIVE RSV RNA Qual (PCR) NEGATIVE Blood Type Antibody Screen Crossmatch 07/03/21 07/03/21 07/04/21 16:04 16:04 04:11 MCV MCH MCHC RDW Plt Count MPV Immature Gran % (Auto) Neut % (Auto) Lymph % (Auto) [place] % (Auto) Eos % (Auto) Baso % (Auto) Lymph # (Auto) [place] # (Auto) Eos # (Auto) Baso # (Auto) Abs Immat Gran (auto) Absolute Neuts (auto) Absolute Nucleated RBC Nucleated RBC % (auto) Anion Gap Estim Creat Clear Calc Estimated GFR Random Glucose Calcium Iron TIBC % Saturation Unsat Iron Binding Total Bilirubin Direct Bilirubin AST ALT Alkaline Phosphatase C-Reactive Protein Total Protein Albumin Lipase Vitamin B12 263 Folate 9.1 TSH Urine Color Urine Appearance Urine pH Ur Specific [place] Urine Protein Urine Glucose (UA) Urine Ketones Urine Blood Urine Nitrite Ur Leukocyte Esterase Urine RBC Urine WBC Ur Squamous Epith Cells Urine Bacteria Urine Mucus Stool Occult Blood Stool Leukocytes, Qual MANY: >10/OIF C. difficile Tox B Gene Coronavirus (PCR) Influenza Type A (PCR) Influenza Type B (PCR) RSV RNA Qual (PCR) Blood Type A Positive Antibody Screen NEGATIVE Crossmatch See Detail 07/04/21 07/04/21 04:11 06:52 MCV 65.5 L MCH 17.8 L MCHC 27.1 L RDW 19.7 H Plt Count 319 D MPV 9.2 L Immature Gran % (Auto) Neut % (Auto) Lymph % (Auto) [place] % (Auto) Eos % (Auto) Baso % (Auto) Lymph # (Auto) [place] # (Auto) Eos # (Auto) Baso # (Auto) Abs Immat Gran (auto) Absolute Neuts (auto) Absolute Nucleated RBC 0.000 Nucleated RBC % (auto) 0.0 Anion Gap Estim Creat Clear Calc Estimated GFR Random Glucose Calcium Iron TIBC % Saturation Unsat Iron Binding Total Bilirubin Direct Bilirubin AST ALT Alkaline Phosphatase C-Reactive Protein Total Protein Albumin Lipase Vitamin B12 Folate TSH Urine Color Urine Appearance Urine pH Ur Specific [place] Urine Protein Urine Glucose (UA) Urine Ketones Urine Blood Urine Nitrite Ur Leukocyte Esterase Urine RBC Urine WBC Ur Squamous Epith Cells Urine Bacteria Urine Mucus Stool Occult Blood Stool Leukocytes, Qual C. difficile Tox B Gene NEGATIVE Coronavirus (PCR) Influenza Type A (PCR) Influenza Type B (PCR) RSV RNA Qual (PCR) Blood Type Antibody Screen Crossmatch Assessment and Plan (1) Acute blood loss anemia: Status: Acute (2) Anemia: Status: Acute (3) Acute GI bleeding: Status: Acute Assessment and Plan: 56 year old male with frquent mucusy, bloodybowel movement and found to have severe anemia, Hgb of 5, likely has 1/GIB 2/acute blood loss anemia--Microcytic type, iron deficiency, s/p 1 unit 07/03, Hgb still 5 3/IBD concern plan 1/Transfuse 2 more units today 2/C dif negative, stool WBC is high, lo 2/Iron low, B12, folate, TSH--normal 3/ GI consult--likely EGB and colonscopy 4/No NSAID 5/IV protonix 6/Hydrate Device for DVT prophylaxis Quality Stroke Does the patient have a stroke diagnosis?: No VTE Prior VTE?: No VTE Risk Level:: Medical - moderate - high VTE Device Contraindication: N/A - Device Ordered VTE Drug Contraindication: Treatment Not Tolerated
--- NOTE | 2021-07-04 13:24 | MHC.CLN ---
NUTRITION/WEIGHT LOSS PATIENT REPORTS 50# WEIGHT LOSS X 1 YEAR. STATED THAT 80% OF THE WEIGHT LOSS WAS INTENTIONAL. NO RECENT WEIGHT LOSS REPORTED AND WOULD LIKE TO MAINTAIN WEIGHT AT ABOUT 200#. CURRENT VINWCP=163.6#. TOLERATING CLEAR LIQUID DIET.
--- NOTE | 2021-07-04 14:11 | MHC.CM.PN ---
PLAN IS COLONOSCOPY Friday07/05/21 PLAN IS CURRENTLY HOME - SELF CARE.
--- NOTE | 2021-07-04 15:09 | MHC.SHP ---
Pre-Procedural Eval Section A Date of Service: 07/04/21 The patient is an INPATIENT: Yes Changes since office visit: No Cold of Flu in the past 2 weeks, No New Medical Problems, No Changes in Medication and No Patient answered all questions The History & Physical has been completed within 30 days and I have reviewed it.: Yes Section B Chief Complaint: Anemia Allergies: Allergies Allergy/AdvReac Type Severity Reaction Status Date / Time No Known Allergies Allergy Verified 07/03/21 11:05 [No Known Allergies*] Plan I have reviewed the history and physical and performed a pertinent physical examination on my patient. No changes have occurred unless specified.
--- NOTE | 2021-07-04 15:12 | PM.EVENT ---
Event Note Date of Service: 07/04/21 Event Note: GI Consult dictated severe CALOS in setting of rectal bleeding, abnl ct scan of colon and significant NSAID usage. EGD/colon to be done 07/05. He understands risks and benefits and agrees to proceed.
[2021-07-04] MEDS: 0.9 % Sodium Chloride Flush 3 ML SYRINGE IVFLUSH (15:49)
[2021-07-04] MEDS: PEG 3350/Na Sulf,Bicarb,Cl/KCL 4,000 ML SOLN.RECON 4000 ML PO (16:37)
--- NOTE | 2021-07-04 16:53 | CONS_ITS ---
DATE OF SERVICE: 07/04/2021 REFERRING PHYSICIAN: Yosi Desai MD REASON FOR CONSULTATION: Rectal bleeding, abnormal CT scan of the colon, and severe iron-deficiency anemia. HISTORY OF PRESENT ILLNESS: The patient is a pleasant 56-year-old man, who was admitted to the hospital after presenting to the emergency room yesterday with bloody bowel movements and generalized weakness. Over the past several months, he has had rectal pain and small amounts of bright red blood per rectum. He thought he was having a nerve problem and has been taking ibuprofen in significant amounts over the last couple of months to treat this. He has not noted any black tarry stools and denies any abdominal pain except for rectal pain. He was evaluated in the emergency department with lab work, which documented a significant anemia with a hematocrit of 20.4, MCV was low, and iron studies are consistent with iron-deficiency anemia. Hemoccult testing was positive and he had large amount of fecal leukocytes. He subsequently underwent imaging of the abdomen and pelvis with CT scan, which shows prominent circumferential thickening around the rectum with nodularity, perirectal induration, and adenopathy suspicious for neoplasm or severe inflammatory proctitis. The patient denies any prior history of proctitis or colitis. He does not recall undergoing colonoscopy. He was admitted to the hospital and is currently being transfused. He is also being treated with proton pump inhibitors. PAST MEDICAL HISTORY: 1. Rectal pain as above. 2. Hypertension. 3. Anxiety. 4. Neuropathy. CURRENT MEDICATIONS: His current medication list is reviewed in the chart. ALLERGIES: THERE ARE NONE REPORTED. FAMILY HISTORY: This is negative for GI malignancy or inflammatory bowel disease. SOCIAL HISTORY: He does smoke. He had been drinking 2 glasses of wine on a daily basis, but thought this was becoming a problem, so he cut back on this over the past month. REVIEW OF SYSTEMS: SKIN: No pruritus. HEENT: Negative. CARDIOPULMONARY: He denies shortness of breath or chest pain. GASTROINTESTINAL: As above. GENITOURINARY: Negative. NEUROPSYCHIATRIC: Negative. PHYSICAL EXAMINATION: GENERAL: Shows pleasant male, sitting in bed. VITAL SIGNS: Reviewed in the electronic medical record and are stable. SKIN: Anicteric. HEENT: Shows no scleral icterus. NECK: Without lymphadenopathy or thyromegaly. LUNGS: Clear. HEART: Shows regular rate and rhythm. S1, S2. No murmur. ABDOMEN: Soft without focal masses or tenderness. Bowel sounds are present. No organomegaly is noted. EXTREMITIES: Without edema. IMPRESSION: My impression is that he has significant iron-deficiency anemia with an abnormal CT scan of the rectosigmoid, concerning for possible underlying malignancy or proctitis. I have recommended that he undergo colonoscopy for further evaluation. He will also have upper endoscopy the same time because of his significant NSAID usage. We discussed risks and benefits of the procedure today. He understands and agrees to proceed. Thanks for asking me to see him. I will follow him in the hospital with you. MD JOSEPHINE Trujillo/JORGE / [id number]
[2021-07-05] VITALS (15 sets, daily range): BP systolic 113–161; BP diastolic 55–77; PULSE 48–69; RESP 16–20; TEMP 36–37.1; O2SAT 99–100
[2021-07-05] MEDS: Morphine Sulfate 2 MG/ML CARTRIDGE IVPUSH ×5 (03:19→23:24)
[2021-07-05] MEDS: Pantoprazole Sodium 40 MG/10 ML VIAL IVPUSH ×2 (05:24→15:32)
[2021-07-05 08:01] LABS: Hematocrit 23.9 % (42-52); Mean Corpuscular HGB Conc 28.9 g/dl (31.0-36.0); Mean Corpuscular Hemoglobin 19.7 pg (27.0-33.0); Mean Corpuscular Volume 68.3 fL (80-98); Mean Platelet Volume 9.3 fL (9.4-12.4); Platelet Count 296 X10*3/uL (160-400); White Blood Count 7.2 X10*3/uL (4.8-10.8)
[2021-07-05 08:23] LABS: Hemoglobin 6.9 g/dl (14.0-18.0)
--- NOTE | 2021-07-05 08:24 | P.PNIM_ITS ---
Subjective Subjective Date of Service: 07/05/21 Interval History: Seen in f/u for iron def anemia, gib with severe gib, reports some blood with colon prep Review of Systems Gen: no fever Resp: no sob, no cough CV: no chest, no FORREST, no leg edema GI: No n/v, no abd pain, bloofy bowel movment ss above Neuro: No confusion Constitutional General: AO X 3, no acute distress Resp: CTA bilateral CVS: S1,S2,RRR GI: +BS, NT, no distention, rectal exam deffered Skin: No rash Neuro: motor grossly intact Psych: appropriate affect Physical Exam Vital Signs: Vital Signs: Last Vital Signs Temp 96.8 F 07/05/21 07:54 Pulse 51 07/05/21 07:54 Resp 18 07/05/21 07:54 BP 130/66 07/05/21 07:54 Pulse Ox 100 07/05/21 07:54 Body Mass Index 26.4 Objective Data Current Medications Generic Name Dose Route Start Last Admin Trade Name Freq PRN Reason Stop Dose Admin Dextrose/Sodium Chloride 1,000 mls @ 100 mls/hr 07/03/21 17:45 07/05/21 08:05 D51/2ns IVCONT Infused .Q10H ROXANE Infusion Morphine Sulfate 2 mg 07/03/21 17:34 07/05/21 08:00 Morphine Sulfate 2 Mg/Ml Cartridge IVPUSH 2 mg Q4H PRN Administration Pain, Severe (Pain Scale 7-10) Protocol Pantoprazole Sodium 40 mg 07/04/21 06:30 07/05/21 05:24 Pantoprazole Sodium 40 Mg/10 Ml Vial IVPUSH 40 mg BID@0675,1630 [facility] Administration Pharmacy Consult 1 each 07/03/21 15:16 Consult Rx Perform Med Rec MISCELLANE ONCE PRN Consult order Sodium Chloride 3 ml 07/04/21 00:00 07/05/21 07:33 0.9 % Sodium Chloride Flush 3 Ml Syringe IVFLUSH Not Given QSHIFT [facility] Labs CBC & Chem 7: 07/05/21 07:47 07/03/21 13:14 Labs: Laboratory Results - last 24 hr 07/03/21 07/03/21 07/05/21 13:14 16:04 07:47 MCV 68.3 L MCH 19.7 L MCHC 28.9 L RDW 22.0 H Plt Count 296 MPV 9.3 L Absolute Nucleated RBC 0.000 Nucleated RBC % (auto) 0.0 Smear Path Review SEE NOTE Blood Type A Positive Antibody Screen NEGATIVE Crossmatch See Detail Microbiology Microbiology Results: Microbiology 07/04/21 04:11 Stool Culture - Preliminary Stool Culture in progress. Assessment and Plan (1) Acute blood loss anemia: Status: Acute (2) Anemia: Status: Acute (3) Acute GI bleeding: Status: Acute Assessment and Plan: 56 year old male with frquent mucusy, bloodybowel movement and found to have severe anemia, Hgb of 5, likely has 1/GIB 2/acute blood loss anemia--Microcytic type, iron deficiency, s/p 3 units 8/10, hgb 6.9 3/IBD concern plan 1/Transfuse 2 more units today for total of 5 2/C dif negative, stool WBC is high, 2/Iron low, B12, folate, TSH--normal 3/ GI consult-- EGB and colonscopy tpdau 4/No NSAID, no heparin 5/IV protonix 6/Hydrate Device for DVT prophylaxis Quality Stroke Does the patient have a stroke diagnosis?: No VTE Prior VTE?: No VTE Risk Level:: Medical - moderate - high VTE Device Contraindication: N/A - Device Ordered VTE Drug Contraindication: Treatment Not Tolerated
--- NOTE | 2021-07-05 12:43 | HO.ANESPROP2 ---
[facility] Active Problems Active Problems: All Active Problems (Updated 07/03/21 @ 17:47 by Yosi Desai MD) Acute blood loss anemia (Acute) Anemia (Acute) Acute GI bleeding (Acute) Past Medical History Medical History (Updated 07/03/21 @ 17:47 by Yosi Desai MD) Anxiety HTN (hypertension) Neuropathy Social History Social History Household Members: Other Housing: House Do you presently have visiting nurse or other home services: No Alcohol intake: former Patient Tobacco Use Status: Current everyday Tobacco user Tobacco use type: Cigarette Smoked in Last 30 Days: Yes Patient Interested in Nicotine Replacement: No (not at the moment) Patient Given Instructions on How to Stop Smoking: No (refused) Use of substances other than those prescribed or required for medical reasons: Yes Substance Use Type: Marijuana Substance Use Frequency: Weekly Currently Displaying Signs/Symptoms of Drug Intoxication Withdrawal: No Have you been hit, kicked, punched, or otherwise hurt by someone within the past year? If so, by whom?: No Do you feel safe in your current relationship?: Yes Is there a partner from a previous relationship who is making you feel unsafe now?: No Are you made to feel afraid or neglected: No Advance Directives: Yes Advance Directives Information Provided: Yes Advance Directives on File: No (not on file) Advance Directives Date on File: 07/03/21 Do you have thoughts of harming others: None Do you have a plan to hurt others: No Plan service: No Current occupational status: employed Meds Allergies Allergy/AdvReac Type Severity Reaction Status Date / Time No Known Allergies Allergy Verified 07/03/21 11:05 [No Known Allergies*] Active Medications: Current Medications Generic Name Dose Route Start Last Admin Trade Name Freq PRN Reason Stop Dose Admin Dextrose/Sodium Chloride 1,000 mls @ 100 mls/hr 07/03/21 17:45 07/05/21 08:05 D51/2ns IVCONT Infused .Q10H ROXANE Infusion Morphine Sulfate 2 mg 07/03/21 17:34 07/05/21 08:00 Morphine Sulfate 2 Mg/Ml Cartridge IVPUSH 2 mg Q4H PRN Administration Pain, Severe (Pain Scale 7-10) Protocol Pantoprazole Sodium 40 mg 07/04/21 06:30 07/05/21 05:24 Pantoprazole Sodium 40 Mg/10 Ml Vial IVPUSH 40 mg BID@3217,6529 [facility] Administration Pharmacy Consult 1 each 07/03/21 15:16 Consult Rx Perform Med Rec MISCELLANE ONCE PRN Consult order Sodium Chloride 3 ml 07/04/21 00:00 07/05/21 07:33 0.9 % Sodium Chloride Flush 3 Ml Syringe IVFLUSH Not Given QSHIFT [facility] Home Medications Medication Instructions Recorded Confirmed Last Taken Type sertraline 25 mg tablet 1 tab PO DAILY 07/03/21 07/03/21 Unknown History Exam Exam Date and Time: July 05, 2021 1243 Height,Weight and Vital Signs: Height 6 ft Weight 88.451 kg Last Vital Signs Temp 97.2 F 07/05/21 12:38 Pulse 55 07/05/21 12:38 Resp 16 07/05/21 12:38 BP 140/65 H 07/05/21 12:38 Pulse Ox 100 07/05/21 11:45 Pertinent Lab Results Pertinent Lab Results: Laboratory Tests 07/03/21 07/03/21 07/03/21 13:14 13:14 13:20 WBC 6.2 RBC 3.19 L Hgb 5.3 L* Hct 20.4 L* MCV 63.9 L MCH 16.6 L MCHC 26.0 L RDW 17.5 H Plt Count 439 H MPV 9.4 Immature Gran % (Auto) 0.3 Neut % (Auto) 69.9 Lymph % (Auto) 18.6 L [place] % (Auto) 6.8 Eos % (Auto) 3.1 Baso % (Auto) 1.3 Lymph # (Auto) 1.2 [place] # (Auto) 0.4 Eos # (Auto) 0.2 Baso # (Auto) 0.1 Abs Immat Gran (auto) 0.02 Absolute Neuts (auto) 4.4 Absolute Nucleated RBC 0.000 Nucleated RBC % (auto) 0.0 Smear Path Review SEE NOTE Sodium 138 Potassium 4.1 Chloride 105 Carbon Dioxide 23 Anion Gap 14 BUN 8 L Creatinine 0.74 Estim Creat Clear Calc 122.3 Estimated GFR > 60 Random Glucose 82 Calcium 8.7 Iron TIBC % Saturation Unsat Iron Binding Total Bilirubin < 0.2 Direct Bilirubin < 0.2 AST 18 ALT < 6 Alkaline Phosphatase 75 C-Reactive Protein 0.33 Total Protein 6.6 Albumin 4.0 Lipase 27 Vitamin B12 Folate TSH Urine Color YELLOW Urine Appearance CLEAR Urine pH 6.0 Ur Specific [place] 1.020 Urine Protein NEG Urine Glucose (UA) NEG Urine Ketones NEG Urine Blood NEG Urine Nitrite NEG Ur Leukocyte Esterase NEG Urine RBC 0-2 Urine WBC 0-2 Ur Squamous Epith Cells NONE Urine Bacteria NONE Urine Mucus 1+ Stool Occult Blood Stool Leukocytes, Qual C. difficile Tox B Gene Coronavirus (PCR) Influenza Type A (PCR) Influenza Type B (PCR) RSV RNA Qual (PCR) Blood Type Antibody Screen Crossmatch 07/03/21 07/03/21 07/03/21 15:12 15:21 16:04 WBC RBC Hgb Hct MCV MCH MCHC RDW Plt Count MPV Immature Gran % (Auto) Neut % (Auto) Lymph % (Auto) [place] % (Auto) Eos % (Auto) Baso % (Auto) Lymph # (Auto) [place] # (Auto) Eos # (Auto) Baso # (Auto) Abs Immat Gran (auto) Absolute Neuts (auto) Absolute Nucleated RBC Nucleated RBC % (auto) Smear Path Review Sodium Potassium Chloride Carbon Dioxide Anion Gap BUN Creatinine Estim Creat Clear Calc Estimated GFR Random Glucose Calcium Iron 7 L TIBC 446 H % Saturation 2 L Unsat Iron Binding 439 Total Bilirubin Direct Bilirubin AST ALT Alkaline Phosphatase C-Reactive Protein Total Protein Albumin Lipase 25 Vitamin B12 Folate TSH 1.46 Urine Color Urine Appearance Urine pH Ur Specific [place] Urine Protein Urine Glucose (UA) Urine Ketones Urine Blood Urine Nitrite Ur Leukocyte Esterase Urine RBC Urine WBC Ur Squamous Epith Cells Urine Bacteria Urine Mucus Stool Occult Blood POSITIVE Stool Leukocytes, Qual C. difficile Tox B Gene Coronavirus (PCR) NEGATIVE Influenza Type A (PCR) NEGATIVE Influenza Type B (PCR) NEGATIVE RSV RNA Qual (PCR) NEGATIVE Blood Type Antibody Screen Crossmatch 07/03/21 07/03/21 07/04/21 16:04 16:04 04:11 WBC RBC Hgb Hct MCV MCH MCHC RDW Plt Count MPV Immature Gran % (Auto) Neut % (Auto) Lymph % (Auto) [place] % (Auto) Eos % (Auto) Baso % (Auto) Lymph # (Auto) [place] # (Auto) Eos # (Auto) Baso # (Auto) Abs Immat Gran (auto) Absolute Neuts (auto) Absolute Nucleated RBC Nucleated RBC % (auto) Smear Path Review Sodium Potassium Chloride Carbon Dioxide Anion Gap BUN Creatinine Estim Creat Clear Calc Estimated GFR Random Glucose Calcium Iron TIBC % Saturation Unsat Iron Binding Total Bilirubin Direct Bilirubin AST ALT Alkaline Phosphatase C-Reactive Protein Total Protein Albumin Lipase Vitamin B12 263 Folate 9.1 TSH Urine Color Urine Appearance Urine pH Ur Specific [place] Urine Protein Urine Glucose (UA) Urine Ketones Urine Blood Urine Nitrite Ur Leukocyte Esterase Urine RBC Urine WBC Ur Squamous Epith Cells Urine Bacteria Urine Mucus Stool Occult Blood Stool Leukocytes, Qual MANY: >10/OIF C. difficile Tox B Gene Coronavirus (PCR) Influenza Type A (PCR) Influenza Type B (PCR) RSV RNA Qual (PCR) Blood Type A Positive Antibody Screen NEGATIVE Crossmatch See Detail 07/04/21 07/04/21 07/05/21 04:11 06:52 07:47 WBC 5.1 7.2 RBC 2.87 L 3.50 L D Hgb 5.1 L* 6.9 L* D Hct 18.8 L* 23.9 L D MCV 65.5 L 68.3 L MCH 17.8 L 19.7 L MCHC 27.1 L 28.9 L RDW 19.7 H 22.0 H Plt Count 319 D 296 MPV 9.2 L 9.3 L Immature Gran % (Auto) Neut % (Auto) Lymph % (Auto) [place] % (Auto) Eos % (Auto) Baso % (Auto) Lymph # (Auto) [place] # (Auto) Eos # (Auto) Baso # (Auto) Abs Immat Gran (auto) Absolute Neuts (auto) Absolute Nucleated RBC 0.000 0.000 Nucleated RBC % (auto) 0.0 0.0 Smear Path Review Sodium Potassium Chloride Carbon Dioxide Anion Gap BUN Creatinine Estim Creat Clear Calc Estimated GFR Random Glucose Calcium Iron TIBC % Saturation Unsat Iron Binding Total Bilirubin Direct Bilirubin AST ALT Alkaline Phosphatase C-Reactive Protein Total Protein Albumin Lipase Vitamin B12 Folate TSH Urine Color Urine Appearance Urine pH Ur Specific [place] Urine Protein Urine Glucose (UA) Urine Ketones Urine Blood Urine Nitrite Ur Leukocyte Esterase Urine RBC Urine WBC Ur Squamous Epith Cells Urine Bacteria Urine Mucus Stool Occult Blood Stool Leukocytes, Qual C. difficile Tox B Gene NEGATIVE Coronavirus (PCR) Influenza Type A (PCR) Influenza Type B (PCR) RSV RNA Qual (PCR) Blood Type Antibody Screen Crossmatch Airway Mallampati Class: II TM Dist: >3cm Neck ROM: Full Denture: Upper Partial: Lower
[2021-07-05] MEDS: Lactated Ringers 1,000 ML 100 ML IVCONT (13:01)
--- NOTE | 2021-07-05 14:46 | P.BOP_ITS ---
Brief Operative Note Date of Service: 07/05/21 Pre-op diagnosis: abnormal ct colon, CALOS Post-op diagnosis: same (rectal mass, colon polyps) Procedure: colonoscopy Surgeon: Aashish Pan Anesthesia: MAC Was an Proposal Consultant used for this Procedure?: No Estimated blood loss (mL): 10 Pathology: other (multiple polyps, biopsies rectal mass) Condition: stable Disposition: PACU
--- NOTE | 2021-07-05 14:47 | PM.EVENT ---
Event Note Date of Service: 07/05/21 Event Note: Colonoscopy note dictated 10cm apple core rectal mass extending to anal sphincted, biopsied cecal polyp, 4 x 3cm, could not be resected due to broad base, marked with liyah ink multiple large polyps, snared poor prep, formed and liquid stool limited exam rec advance diet surg/onc consults transfuse prn f/u bx results
[2021-07-05 14:55] LABS: MANUAL DIFF FLAG NO
[2021-07-05 14:56] LABS: Basophils Absolute Auto 0.1 X10*3/uL (0.0-0.2); Basophils Percent Auto 0.9 % (0-2); Eosinophils Absolute Auto 0.2 X10*3/uL (0.0-0.4); Eosinophils Percent Auto 2.6 % (0-4); Imm Gran Abs Auto 0.03 X10*3/uL (0.00-0.03); Imm Gran Pct Auto 0.4 % (0.0-0.4); Lymphocytes Absolute Auto 0.9 X10*3/uL (1.2-4.9); Lymphocytes Percent Auto 12.8 % (20-40); Monocytes Absolute Auto 0.6 X10*3/uL (0.1-1.2); Monocytes Percent Auto 8.4 % (2-11); Neutrophils Absolute Auto 5.3 X10*3/uL (2.0-8.3); Neutrophils Percent Auto 74.9 % (45-73)
[2021-07-05] MEDS: 0.9 % Sodium Chloride Flush 3 ML SYRINGE IVFLUSH ×2 (15:32→21:35)
--- NOTE | 2021-07-05 15:38 | P.CONGS_ITS ---
History of Present Illness Consult details Consult date: 07/05/21 Narrative: 56-year-old male referred for rectal mass. He came to the emergency room yesterday because of chronic rectal pain for about 3-4 months now. He describes passing small amounts of bright blood per rectum with bowel movements. He was noted to be anemic the ER. His hemoglobin was 5.3. He has says he has really been unable to sit down comfortably because of his rectal pain. He underwent a colonoscopy today with Dr. Pan and he was noted to have a large rectal mass. Biopsies of this were taken. He says he has never had any colonoscopy in the past. He denies any family history of colon cancer. Review of Systems Constitutional: Constitutional: Denies chills, Reports fatigue and Denies fever(s) Cardiovascular: Cardiovascular: Denies chest pain, Denies dyspnea and Denies dyspnea on exertion Respiratory: Respiratory: Denies cough, Denies dyspnea and Denies dyspnea on exertion Gastrointestinal: Gastrointestinal: Reports hematochezia and Denies change in bowel habits Genitourinary: Genitourinary: Denies hematuria and Denies difficulty urinating Musculoskeletal: Musculoskeletal: Denies back pain and Denies limited range of motion Neurologic: Denies focal weakness and Denies convulsions Psychiatric: Psychiatric: Denies depression and Denies mood swings Endocrine: Endocrine: Reports fatigue PMFSH Past Medical History Medical History (Updated 07/05/21 @ 15:43 by Eliu Barahona MD) Anxiety HTN (hypertension) Neuropathy Rectal mass Social History Social History Household Members: Other Housing: House Do you presently have visiting nurse or other home services: No Alcohol intake: former Patient Tobacco Use Status: Current everyday Tobacco user Tobacco use type: Cigarette Cigarettes Per Day: 8 Years Smoked: 30 Smoked in Last 30 Days: Yes Patient Interested in Nicotine Replacement: No (not at the moment) Patient Given Instructions on How to Stop Smoking: No (refused) Use of substances other than those prescribed or required for medical reasons: Yes Substance Use Type: Marijuana Substance Use Frequency: Weekly Currently Displaying Signs/Symptoms of Drug Intoxication Withdrawal: No Have you been hit, kicked, punched, or otherwise hurt by someone within the past year? If so, by whom?: No Do you feel safe in your current relationship?: Yes Is there a partner from a previous relationship who is making you feel unsafe now?: No Are you made to feel afraid or neglected: No Are you DNR?: No Advance Directives: Yes Advance Directives Information Provided: Yes Advance Directives on File: No (not on file) Advance Directives Date on File: 07/03/21 Do you have thoughts of harming others: None Do you have a plan to hurt others: No Plan service: No Current occupational status: employed Meds Allergies Allergy/AdvReac Type Severity Reaction Status Date / Time No Known Allergies Allergy Verified 07/03/21 11:05 [No Known Allergies*] Active Medications: Current Medications Generic Name Dose Route Start Last Admin Trade Name Freq PRN Reason Stop Dose Admin Dextrose/Sodium Chloride 1,000 mls @ 100 mls/hr 07/03/21 17:45 07/05/21 08:05 D51/2ns IVCONT Infused .Q10H ROXANE Infusion Lactated Ringer's 1,000 mls @ 100 mls/hr 07/05/21 12:45 07/05/21 13:01 Lr IVCONT 100 mls/hr .Q10H ROXANE Administration Morphine Sulfate 2 mg 07/03/21 17:34 07/05/21 15:32 Morphine Sulfate 2 Mg/Ml Cartridge IVPUSH 2 mg Q4H PRN Administration Pain, Severe (Pain Scale 7-10) Protocol Pantoprazole Sodium 40 mg 07/04/21 06:30 07/05/21 15:32 Pantoprazole Sodium 40 Mg/10 Ml Vial IVPUSH 40 mg BID@0630,1630 [facility] Administration Pharmacy Consult 1 each 07/03/21 15:16 Consult Rx Perform Med Rec MISCELLANE ONCE PRN Consult order Sodium Chloride 3 ml 07/04/21 00:00 07/05/21 15:32 0.9 % Sodium Chloride Flush 3 Ml Syringe IVFLUSH 3 ml QSHIFT ROXANE Administration Home Medications Medication Instructions Recorded Confirmed Last Taken Type sertraline 25 mg tablet 1 tab PO DAILY 07/03/21 07/03/21 Unknown History Physical Exam Vital Signs: Vital Signs: Last Vital Signs Temp 98.4 F 07/05/21 14:58 Pulse 60 07/05/21 14:58 Resp 17 07/05/21 14:58 BP 118/59 L 07/05/21 14:58 Pulse Ox 100 07/05/21 14:58 Body Mass Index 26.4 Const: General: comfortable and no acute distress Orientat ion/consciousness: patient oriented x3 Neck: Neck: Yes no lymphadenopathy Resp: Auscultation: clear to auscultation bilaterally Cardio: Rhythm: regular rhythm GI: Other: Digital rectal exam deferred -patient says he is very sore and states that he may not be able to tolerate this Palpation (GI): Soft to palpation, nontender and no guarding Neuro: General: patient oriented x3 Results Labs Result diagrams: 07/05/21 07:47 07/03/21 13:14 Labs: Abnormal lab results 07/03/21 07/05/21 Range/Units 16:04 07:47 RBC 3.50 L D (4.60-5.80) X10*6/uL Hgb 6.9 L* D (14.0-18.0) g/dl Hct 23.9 L D (42-52) % MCV 68.3 L (80-98) fL MCH 19.7 L (27.0-33.0) pg MCHC 28.9 L (31.0-36.0) g/dl RDW 22.0 H (11.0-16.0) % MPV 9.3 L (9.4-12.4) fL Neut % (Auto) 74.9 H (45-73) % Lymph % (Auto) 12.8 L (20-40) % Lymph # (Auto) 0.9 L (1.2-4.9) X10*3/uL Crossmatch See Detail Short CBC 07/05/21 Range/Units 07:47 WBC 7.2 (4.8-10.8) X10*3/uL Hgb 6.9 L* D (14.0-18.0) g/dl Hct 23.9 L D (42-52) % Plt Count 296 (160-400) X10*3/uL Urine 07/03/21 Range/Units 13:20 Urine Color YELLOW Urine Appearance CLEAR Urine pH 6.0 (5.0-8.0) Ur Specific [place] 1.020 (1.005-1.025) Urine Protein NEG (NEG-TRACE) MG/DL Urine Glucose (UA) NEG (NEG) MG/DL All other labs normal. Imaging Abdomen CT scan report/results: report reviewed and image reviewed CT scan - pelvis: report reviewed and image reviewed Assessment and Plan (1) Rectal mass: Status: Acute He has had rectal pain for about 4 months now along with passage of bright blood per rectum with bowel movements. He was anemic from this blood loss. His CAT scan shows thickening of the rectum with nodule RET of the serosal surface, as well as perirectal lymphadenopathy. Findings are suspicious for rectal malignancy. He had a colonoscopy today showing a mass in the rectum and biopsies are pending. I will await for path report. He likely has a rectal adenocarcinoma. He may need to have an MRI for staging, as well as a CT scan of the chest. He states that he is being discharged tomorrow. He does state that if he does get discharge, he will see me in the office for his workup and further management. He was made aware that if this turns out to be an adenocarcinoma, he may require neoadjuvant treatment with chemotherapy and radiation. Procedures Date of Service Date of Service: 07/05/21
--- NOTE | 2021-07-05 19:03 | OP_ITS ---
SURGEON: Aashish Pan MD PREOPERATIVE DIAGNOSIS: POSTOPERATIVE DIAGNOSIS: PROCEDURE PERFORMED: ESTIMATED BLOOD LOSS: COMPLICATIONS: ANESTHESIA: ASSISTANTS: SPECIMENS: PROCEDURES PERFORMED: 1. Upper endoscopy with biopsy. 2. Colonoscopy to the cecum with biopsy, snare polypectomy, and Caridad ink marking. MEDICATIONS: Monitored anesthesia care. DESCRIPTION OF PROCEDURE: History and physical performed. The risks and benefits of the procedure were explained to the patient. Informed consent was obtained. The patient was placed in the left lateral decubitus position. The Olympus video gastroscope was introduced into the esophagus, stomach, and duodenum. Examination was performed and the scope was removed. He was repositioned for colonoscopy. A digital rectal exam was performed and revealed a large hard rectal mass that extended to the level of the anal sphincter. The Olympus pediatric video colonoscope was introduced into the rectum and advanced to the cecum with some difficulty due to the poor prep. Examination was performed and the scope was removed. He tolerated the procedure well and was taken to recovery area in stable condition. FINDINGS: Upper endoscopy: The esophagus, stomach and duodenum were normal. Antral biopsies were obtained to evaluate for h pylori. Colonoscopy: The terminal ileum was not examined. There was a large amount of solid and liquid stool, which limited the examination greatly for detection of small polyps. This was washed and suctioned as best possible and made the examination extended and difficult. The cecum seemed to lie fairly high up in the right side of the abdomen. In the cecum, was a 3 x 4 cm broad-based polyp, which could not be endoscopically resected. This was biopsied and a total of 3 mL of Caridad ink was used to [place] the site with injection through a sclerotherapy needle. In the right colon, were 2 polyps, which were piecemeal resected and recovered. At 20 cm, was a 12 mm polyp, which was resected. At 18 cm, were 2 other large polyps, which were resected with a snare. In the rectum beginning at about 10 cm from the anal verge and extending to just about the anal sphincter, was a circumferential ulcerated apple-core type lesion, which was friable and bled easily with instrumentation. This appeared to be a carcinoma and was biopsied. It was impossible to retroflex the endoscope because of the location of the tumor. There did appear to be some tumor fragments extending through the anal sphincter as the scope was withdrawn. IMPRESSION: 1. Normal upper endoscopy. 2. Multiple colon polyps as above. 3. Rectal mass. RECOMMENDATIONS: 1. Follow up the biopsy results. 2. Surgical consultation. The cecal polyp and rectal cancer will need surgery. 3. Check CEA level. 4. Colonoscopy in 1 year. MD JOSEPHINE Trujillo/JORGE / [id number] MTDD
[2021-07-06] VITALS (10 sets, daily range): BP systolic 112–139; BP diastolic 55–73; PULSE 47–64; RESP 16–19; TEMP 36–36.8; O2SAT 98–100
[2021-07-06] MEDS: Dextrose 5 % and 0.45 % NaCl 1,000 ML 100 ML IVCONT (01:32)
[2021-07-06] MEDS: Morphine Sulfate 2 MG/ML CARTRIDGE IVPUSH ×4 (03:23→16:09)
[2021-07-06] MEDS: Pantoprazole Sodium 40 MG/10 ML VIAL IVPUSH ×2 (05:37→16:09)
[2021-07-06 06:22] LABS: Hematocrit 25.7 % (42-52); Hemoglobin 7.7 g/dl (14.0-18.0); Mean Corpuscular Hemoglobin 21.3 pg (27.0-33.0); Mean Corpuscular Volume 71.2 fL (80-98); Mean Platelet Volume 9.1 fL (9.4-12.4); Platelet Count 249 X10*3/uL (160-400); Red Blood Count 3.61 X10*6/uL (4.60-5.80); Red Cell Distribution Width 24.7 % (11.0-16.0); White Blood Count 7.7 X10*3/uL (4.8-10.8)
[2021-07-06 06:49] LABS: Anion Gap 11 (12-20); Blood Urea Nitrogen 6 mg/dL (9-16); Calcium 8.1 mg/dL (8.4-10.2); Carbon Dioxide 25 mmol/L (22-29); Chloride 105 mmol/L (96-108); Creatinine Clr Calc Pharmacy 139.2; Estimated Glomerular Filt Rate > 60; Glucose Random 86 mg/dL (60-115); Potassium 3.5 mmol/L (3.3-5.1); Sodium 137 mmol/L (135-145)
--- NOTE | 2021-07-06 07:57 | PM.HEMONCCN ---
Subjective - Subjective Chief complaint: Consult for: Anal carcinoma. Patient: new to practice Consult date: 07/23/21 Requesting Physician: Giselle. Primary Care Provider: Mundo Guzmán DO Medical Summary: DIAGNOSIS: ANAL CARCINOMA. HPI - Consult Narrative Reason for consult: Consult for: Anal carcinoma. Narrative: Danilo Beckwith is a pleasant 56 year old gentleman, here for a follow-up visit. He complains of severe pain in the rectal area. Grades it as 10 on 1-10 scale. Prior to admission he said the Motrin appeared to have been helping. He has been taking oxycodone prescribed by Dr. Barahona. He has been taking extra pills. He does not have any more he says. Dr. Barahona just sent in a prescription today. He took some Motrin last night and it helped. He denies abdominal pain. No nausea or vomiting. He has been constipated since he started the oxycodone. He has been using stool softeners. He gets occasional rectal bleeding. Not severe. Appetite is not that good. He has lost weight. He was originally 250 lbs. He then lost some weight intentionally. Now he is down to 175. His energy level has improved after the blood transfusion he received in house. Presenting history: He presented with bloody bowel movement. He typically has to have bowel moment shortly eating. He has been taking Ibuprofen 400 mg 3 to 4 times a day for a few month to treat nerve pain around rectal area. His appetite is not that good. He has lost nearly 50 Ib over the course of year, some of it has been intentional. No abdominal pain, no fever. No prior colonoscopy. CT scan of the abdomen pelvis from 07/03: 1. Prominent circumferential thickening around them with nodular serosal surface, induration of the perirectal soft tissues, and perirectal adenopathy. Findings may represent neoplasm with secondary inflammation or severe inflammatory proctitis. 2. No proximal obstruction, pneumatosis, free air, or fluid collection. 3. Liver and spleen normal. No retroperitoneal adenopathy. No ascites. Colonoscopy from yesterday revealed: In the rectum beginning at about 10 cm from the anal verge and extending to just about the anal sphincter, was a circumferential ulcerated apple-core type lesion, which was friable and bled easily with instrumentation. This appeared to be a carcinoma and was biopsied. It was impossible to retroflex the endoscope because of the location of the tumor. There did appear to be some tumor fragments extending through the anal sphincter as the scope was withdrawn. CEA level: 6.20. Past medical history: Anxiety, HTN no longer on meds. Review of Systems - Constitutional Reports system reviewed and no additional complaints, except as documented, Reports fatigue, Reports lack of energy, Reports malaise, Reports poor appetite, Reports weight loss - Eyes Reports system reviewed and no additional complaints, except as documented, Denies bulging eyes, Denies change in vision - ENT Reports system reviewed and no additional complaints, except as documented, Denies bleeding gums - Cardiovascular Reports system reviewed and no additional complaints, except as documented, Denies fainting, Denies shortness of breath when lying down - Respiratory Reports no additional respiratory complaints - Gastrointestinal Reports system reviewed and no additional complaints, except as documented, Reports bright, red blood in stools, Reports change in bowel habits, Reports constipation, Denies abdominal pain, Denies black, tarry stools Comments: Rectal pain and bleeding. - Genitourinary Genitourinary: Reports no additional male genitourinary complaints, Denies difficulty urinating - Musculoskeletal Reports system reviewed and no additional complaints, except as documented, Denies body aches - Integumentary/Breasts Skin/Breast: Reports no additional skin complaints, Denies boil - Neurologic Denies focal weakness, Denies convulsions - Psychiatric Reports system reviewed and no additional complaints, except as documented, Reports anxiety - Endocrine Reports no additional endocrine complaints, Denies excessive sweating - Hematologic/Lymphatic Reports system reviewed and no additional complaints, except as documented - Allergic/Immunologic Reports system reviewed and no additional complaints, except as documented Oncology Screenings - ECOG Performance Status ECOG Performance Status: 0 PMFSH Medical History: Medical History (Last Updated 07/12/21 @ 16:45 by Eliu Barahona MD) Anxiety HTN (hypertension) Neuropathy Rectal adenocarcinoma Rectal mass Functional capacity: independent ambulation Patient : No Family History: Family History (Last Updated 07/23/21 @ 14:03 by Glenda Dos Santos) Mother Melanoma DVT (deep venous thrombosis) Family/Other Melanoma Surgical History: Surgical History (Last Updated 07/23/21 @ 14:03 by Glenda Dos Santos) History of mandibular surgery Social History: Social History (Last Updated 07/23/21 @ 14:03 by Glenda Dos Santos) Living Situation History: Household Members: Other Housing: House Do you presently have visiting nurse or other home services: No Alcohol History: Alcohol intake: former Alcohol History Details: Alcohol intake frequency: does not drink Tobacco History: Patient Tobacco Use Status: Current everyday Tobacco Tobacco use type: Cigarette Years Smoked: 30 Substance Use History: Substance Use Type: Marijuana Advance Directives: Advance Directives Date on File: 07/03/21 Occupation Assessmet: service: No Current occupational status: employed Home Medications and Allergies Current Medications: Current Medications Generic Name Dose Route Start Last Admin Trade Name Freq PRN Reason Stop Dose Admin Dextrose/Sodium Chloride 1,000 mls @ 100 mls/hr 07/03/21 17:45 07/06/21 01:32 D51/2ns IVCONT 100 mls/hr .Q10H ROXANE Administration Morphine Sulfate 2 mg 07/03/21 17:34 07/06/21 07:30 Morphine Sulfate 2 Mg/Ml Cartridge IVPUSH 2 mg Q4H PRN Administration Pain, Severe (Pain Scale 7-10) Protocol Pantoprazole Sodium 40 mg 07/04/21 06:30 07/06/21 05:37 Pantoprazole Sodium 40 Mg/10 Ml Vial IVPUSH 40 mg BID@0630,1630 [facility] Administration Pharmacy Consult 1 each 07/03/21 15:16 Consult Rx Perform Med Rec MISCELLANE ONCE PRN Consult order Sodium Chloride 3 ml 07/04/21 00:00 07/06/21 07:24 0.9 % Sodium Chloride Flush 3 Ml Syringe IVFLUSH Not Given QSHIFT [facility] Home Medications Medication Instructions Recorded Confirmed Type sertraline 25 mg tablet 1 tab PO DAILY 07/03/21 07/23/21 History Allergies Allergy/AdvReac Type Severity Reaction Status Date / Time No Known Allergies Allergy Verified 07/23/21 14:03 [No Known Allergies*] Physical Exam Vital signs: Vital Signs Temp 98.2 F 07/06/21 03:43 Pulse 50 07/06/21 03:43 Resp 18 07/06/21 03:43 BP 117/55 L 07/06/21 03:43 Pulse Ox 99 07/06/21 03:43 Intake & Output 07/05/21 07/06/21 07/06/21 18:59 06:59 18:59 Intake Total 1350 / 2770 1420 / 2770 Balance 1350 / 2770 1420 / 2770 Intake: Intake, Oral Amount 120 / 120 Intake (Blood Product) Amount 350 / 650 300 / 650 Red Blood Cells (E0382) Unit 350 / 350 [id number] Red Blood Cells (E0382) Unit 0 / 300 300 / 300 [id number] Intake, IV Amount 1000 / 2000 1000 / 2000 Dextrose 5 % and 0.45 % NaCl 1, 1000 / 1000 000 ml @ 100 mls/hr IVCONT . Q10H ROXANE Rx#:[id number] Lactated Ringers 1,000 ml @ 100 1000 / 1000 mls/hr IVCONT .Q10H ROXANE Rx#: [id number] Other: Meal Refused No NPO Yes Number of Unmeasured Voids 1 Weight 88.451 kg - Constitutional Present: mild distress - Routine HEENT Exam Head: Present: normal inspection ENT: Present: mucous membranes moist - Routine Neck Exam Present: supple - Routine Respiratory Exam Present: CTAB - Routine Cardiovascular Exam Cardiovascular: Present: RRR, S1, S2 - Routine Abdominal Exam Present: soft, nontender - Routine Rectal Exam Patient deferred: digital exam - Routine Extremities Exam Present: nontender - Routine Back/Spine/Pelvis Exam Back/Spine: Absent: CVA tenderness Hem/Onc Consult Result - Labs CBC & Chem 7: 07/06/21 16:41 07/06/21 05:52 Labs: Short CBC 07/05/21 07/06/21 Range/Units 07:47 05:52 WBC 7.2 7.7 (4.8-10.8) X10*3/uL Hgb 6.9 L* D 7.7 L (14.0-18.0) g/dl Hct 23.9 L D 25.7 L (42-52) % Plt Count 296 249 (160-400) X10*3/uL BMP 07/06/21 05:52 Sodium 137 Potassium 3.5 Chloride 105 Carbon Dioxide 25 BUN 6 L Creatinine 0.65 Calcium 8.1 L D Assessment and Plan Patient Active problem list reviewed?: Yes (1) Mass of anus Status: Acute (2) Rectal mass Status: Acute Assessment and plan: 56-year-old gentleman with rectal bleeding and pain. He has lost weight. CT scan of the abdomen pelvis from 07/03: 1. Prominent circumferential thickening around them with nodular serosal surface, induration of the perirectal soft tissues, and perirectal adenopathy. Findings may represent neoplasm with secondary inflammation or severe inflammatory proctitis. 2. No proximal obstruction, pneumatosis, free air, or fluid collection. 3. Liver and spleen normal. No retroperitoneal adenopathy. No ascites. Colonoscopy from 07/05 revealed: In the rectum beginning at about 10 cm from the anal verge and extending to just about the anal sphincter, was a circumferential ulcerated apple-core type lesion, which was friable and bled easily with instrumentation. This appeared to be a carcinoma and was biopsied. It was impossible to retroflex the endoscope because of the location of the tumor. There did appear to be some tumor fragments extending through the anal sphincter as the scope was withdrawn. CEA level: 6.20. Pathology revealed: Focus of invasive adenocarcinoma involving ulcerated colonic mucosa in a background of high-grade dysplasia. IHC studies for DNA mismatch repair proteins are pending. Pt. has locally advanced rectal carcinoma. Most likely he will need combined modality therapy with radiation along with chemotherapy. I proceeded with further staging work up, with a PET scan. This was done on , and revealed: 1. An intensely FDG avid large rectal mass is present as described above, most consistent with a primary rectal malignancy. 2. At least one weakly FDG avid left perirectal lymph node is present and is suspicious for a local metastasis. 3. Prominent focal FDG activity in the right colon just superior to the cecum and in a small focus in the left colon are nonspecific. While these may be physiological, additional malignant lesions at these sites cannot be entirely ruled out although there is no CT evidence on the current CT images or the prior diagnostic CT scan dated 07/03/2021 to suggest the latter. These could be further characterized with colonoscopy, if clinically indicated. 4. There is some asymmetry in the FDG activity in the larynx as described above, possibly associated with some thickening of the right true cord. While this may be physiological, correlation with direct visualization is recommended to rule out a significant laryngeal lesion at this site. 5. No additional abnormalities suspicious for other metastatic or malignant lesions are noted. PLAN: I will arrange for an MRI of the pelvis with endorectal coil [place] [facility] He has an appointment with Dr. Lucas to do an exam of the suspicious findings on the vocal cords as seen on the PET scan.( the exam was actually benign.) He has an appointment with radiation department at [facility]. I will proceed with a Port-A-Cath placement. Will arrange for Chemotherapy, once the above studies have been completed. Will treat according to the Luiza dela cruz article from April 2018: Total neoadjuvant therapy for locally advanced rectal cancer. This was a retrospective analysis using [facility] [place]. Eight hundred eleven patients were identified with T3/4 locally advanced rectal cancer. 320 received chemo RT with planned adjuvant chemotherapy and 308 received DEMARCUS followed by chemo RT. The results suggested that DEMARCUS treatment facilitates delivery of planned systemic therapy and is a viable treatment strategy for rectal cancer. He will return for chemotherapy teaching, next week. I sent a prescription for MS Contin 30 mg b.i.d. for long-acting affect. He will fruit or nut picker the oxycodone prescription sent in by Dr. Barahona. He will undergo genetic testing in a few weeks. Thanks, CC: Dr. Pan. Dr. Barahona. Dr. Marley. - Time Spent With Patient Time Spent with Patient (in minutes): 40
[2021-07-06] MEDS: Sodium Ferric Gluconat/Sucrose 125 MG in 0.9 % Sodium Chloride 100 ML 100 MG IV (09:22)
--- NOTE | 2021-07-06 12:47 | MHC.CM.PN ---
PATIENT RECEIVING BLOOD AND POSSIBLE DC HOME LATER TODAY. CASE MANAGEMENT FOLLOWING.
--- NOTE | 2021-07-06 15:45 | P.PNGS_ITS ---
Subjective Subjective Date of Service: 07/06/21 Interval history: Patient states he wants to go home Currently receiving transfusion for hemoglobin 7.1 Denies significant rectal bleeding Admits to pain in the rectum Physical Exam Vital Signs: Vital Signs: Last Vital Signs Temp 97.1 F 07/06/21 15:38 Pulse 56 07/06/21 15:38 Resp 18 07/06/21 15:38 BP 128/65 07/06/21 15:38 Pulse Ox 98 07/06/21 15:35 Body Mass Index 26.4 Const: General: comfortable and no acute distress Resp: Other: Chemistry 07/06/21 05:52 Sodium 137 Potassium 3.5 Carbon Dioxide 25 BUN 6 L Creatinine 0.65 Calcium 8.1 L D Hematology 07/04/21 07/05/21 07/06/21 06:52 07:47 05:52 WBC 5.1 7.2 7.7 Hgb 5.1 L* 6.9 L* D 7.7 L Plt Count 319 D 296 249 Effort & Inspection: normal respiratory effort GI: Palpation (GI): Soft to palpation and nontender Procedures Date of Service Date of Service: 07/06/21 Progress Note: A&P Assessment and plan (1) Rectal mass: Status: Acute Assessment and Plan: Likely adenocarcinoma Path report pending Likely going to need neoadjuvant treatment Explained plan to patient He will need to be followed by Oncology as well as surgical service Fall Risk Details Current Medications: Current Medications Generic Name Dose Route Start Last Admin Trade Name Freq PRN Reason Stop Dose Admin Dextrose/Sodium Chloride 1,000 mls @ 100 mls/hr 07/03/21 17:45 07/06/21 09:27 D51/2ns IVCONT 0 mls/hr .Q10H ROXANE Infusion Morphine Sulfate 2 mg 07/03/21 17:34 07/06/21 11:42 Morphine Sulfate 2 Mg/Ml Cartridge IVPUSH 2 mg Q4H PRN Administration Pain, Severe (Pain Scale 7-10) Protocol Pantoprazole Sodium 40 mg 07/04/21 06:30 07/06/21 05:37 Pantoprazole Sodium 40 Mg/10 Ml Vial IVPUSH 40 mg BID@0630,1630 [facility] Administration Pharmacy Consult 1 each 07/03/21 15:16 Consult Rx Perform Med Rec MISCELLANE ONCE PRN Consult order Sodium Chloride 3 ml 07/04/21 00:00 07/06/21 07:24 0.9 % Sodium Chloride Flush 3 Ml Syringe IVFLUSH Not Given QSHIFT ROXANE Time Spent With Patient Time: Total time spent is greater than 50% in coordination of care (as documented) at patient's floor/unit and/or counseling patient: Time with patient: 15 - 24 minutes Quality Stroke Does the patient have a stroke diagnosis?: No VTE Prior VTE?: No VTE Risk Level:: Medical - moderate - high VTE Device Contraindication: N/A - Device Ordered VTE Drug Contraindication: Treatment Not Tolerated
--- NOTE | 2021-07-06 16:08 | PM.DS ---
DS: Providers Provider Date of Service: 07/06/21 Date of admission: 07/03/21 17:32 Primary care physician: Mundo Guzmán DO Consults: 07/03/21 17:49 Consult to Gastroenterology Routine Consulting Provider: Joel Mesa Reason for consultation: gi bleeding 07/05/21 14:41 Consult to General Surgery Routine Consulting Provider: Eliu Barahona Reason for consultation: rectal mass, cecal polyp Has provider been notified: No 07/05/21 16:18 Consult to Hematology / Oncology Routine Consulting Provider: Henan Chau Reason for consultation: rECTAL CANCER Has provider been notified: No DS: Diagnosis Discharge Diagnosis (1) Rectal mass: Status: Acute DS: Medications Discharge Medications Home Medications: Home Medications Medication Instructions Recorded Confirmed sertraline 25 mg tablet 1 tab PO DAILY 07/03/21 07/03/21 DS: Summary Hospital Course Hospital Course: 56 year old male with? anxiety, HTN no longer on meds who presents to the ED with blood bowel movment, and typically has to have bowel moment shortly eating. He has been taking Ibuprofen 400 mg 3 to 4 times? a day for? a few month to treat nerve pain around rectal area. He has lost nearly 50 Ib over the course of year, some of it has been intentional. No prior colonoscopy.? No abdominal pain, no fever. Hospital course: Patient was admitted and transfuse with RBC total 7 unirs, H/H is better presently at 9.3/30.2 as of 07/06. He underwent EGD/Colonoscop by Dr. Pan on 07/04 with the following findings: 10cm apple core rectal mass extending to anal sphincted, biopsied cecal polyp, 4 x 3cm, could not be resected due to broad base, marked with liyah ink multiple large polyps, snared poor prep, formed and liquid stool limited exam. He has been evaluated by Dr. Barahona and will have surgery arranged post biopsy result. He was also seen by Dr. Chau (Oncology) and will have oncology follow up for likely rectal cancer. CEA level is 6.2. Diet advanced and tolerating. He has received 1 dose of IV iron and will discharge oral iron. Time Spent with Patient Time attestation: Total time spent providing and/or coordinating discharge services: Discharge coordination time: Greater than 30 minutes Quality: Stroke Does the patient have a stroke diagnosis?: No Physical Exam Vital Signs: Vital Signs: Last Vital Signs Temp 97.1 F 07/06/21 15:38 Pulse 56 07/06/21 15:38 Resp 18 07/06/21 15:38 BP 128/65 07/06/21 15:38 Pulse Ox 98 07/06/21 15:35 Body Mass Index 26.4 DS: Data Data Completed and Pending Pending studies at discharge: Pending at discharge 07/05/21 13:26 Surgical [PTH] Routine Labs on day of discharge: Laboratory Results - last 24 hr 07/03/21 07/06/21 07/06/21 16:04 05:52 05:52 WBC 7.7 RBC 3.61 L Hgb 7.7 L Hct 25.7 L MCV 71.2 L MCH 21.3 L MCHC 30.0 L RDW 24.7 H Plt Count 249 MPV 9.1 L Absolute Nucleated RBC 0.000 Nucleated RBC % (auto) 0.0 Sodium 137 Potassium 3.5 Chloride 105 Carbon Dioxide 25 Anion Gap 11 L BUN 6 L Creatinine 0.65 Estim Creat Clear Calc 139.2 Estimated GFR > 60 Random Glucose 86 Calcium 8.1 L D Carcinoembryonic Ag 6.20 Blood Type A Positive Antibody Screen NEGATIVE Crossmatch See Detail Preliminary micro results at discharge 07/04/21 04:11 Stool Culture - Preliminary Stool Culture in progress. Discharge Plan Discharge Anticipated Discharge Date/Time: 07/06/21 15:54 Patient Disposition: Home, Self-Care Discharge Diagnosis: Rectal mass, acute blood loss anemia Referrals: Mundo Guzmán DO [Primary Care Provider] - 1 Week Eliu Barahona MD [Physician] - 1 Week Henna Chau MD [Physician] - 1 Week Discharge Medications: New ferrous sulfate 325 mg (65 mg iron) tablet,delayed release (DR/EC) 325 mg PO BID Qty: 60 RF: 0 oxycodone 5 mg tablet 5 mg PO Q6H PRN (Reason: severe pain (scale score 7-10)) Qty: 20 RF: 0 docusate sodium [Colace] 100 mg capsule 100 mg PO BID Qty: 60 RF: 0 ascorbic acid (vitamin C) [Vitamin C] 500 mg capsule, extended release 500 mg PO BID Qty: 60 RF: 0 Continued sertraline 25 mg tablet 1 tab PO DAILY RF: 0 Discharge Orders: Discharge Order (Routine); Ordered 07/06/21 Ordered By: Yosi Desai Diet: advance to usual diet Activity on Discharge: As tolerated Stand Alone Forms: Patient Portal Discharge page Care Plan Goals: Full diagnosis and treatment for rectal mass and anemia Health Concerns: Rectal mass, concern for rectal cancer Plan of Treatment: To follow up with Dr. Chau and Dr. Barahona next week for next plan of care Assessment: As above.
[2021-07-06] MEDS: 0.9 % Sodium Chloride Flush 3 ML SYRINGE IVFLUSH (16:09)
--- NOTE | 2021-07-06 16:28 | MHC.HEMONC ---
Appointment scheduled for ONC consult with Dr Chau for 07/23/21 at 1400. Pt is a current pt on S3. Nurses station called and informed of pt's appointment-staff state they will give appointment to pt.
[2021-07-06 17:19] LABS: Hematocrit 30.2 % (42-52); Hemoglobin 9.3 g/dl (14.0-18.0)
== END 2021-07-06 18:03 | disposition home or self-care (01) | DRG 375 ==
LOC: HO.ED 17:08 → HO.EDOVER 17:48 → HO.S3 19:04
PROVIDERS: Emergency Medicine Emergency Medical Services; Internal Medicine Gastroenterology; Admitting Provider Internal Medicine; Emergency Provider Emergency Medicine Emergency Medical Services; PCP Internal Medicine; Visit Provider Internal Medicine
PROC: 0DB78ZX Excision of Stomach, Pylorus, Via Natural or Artificial Opening Endoscopic, Diagnostic (ICD-10-PCS; principal; 2021-07-05 13:00)
DX: C20 Malignant neoplasm of rectum (principal); D62 Acute posthemorrhagic anemia; K63.5 Polyp of colon; Z20.822 Contact with and (suspected) exposure to COVID-19; F41.9 Anxiety disorder, unspecified; F17.210 Nicotine dependence, cigarettes, uncomplicated; Z71.6 Tobacco abuse counseling; Z79.1 Long term (current) use of non-steroidal anti-inflammatories (NSAID); Z79.899 Other long term (current) drug therapy
CPT/HCPCS: 0241U; 36415; 36430; 74177; 80048; 80076; 81001; 82272; 82378; 82607; 82746; 83540; 83690; 84443; 85014; 85018; 85025; 85027; 86140; 86850; 86900; 86901; 86923; 87045; 87046; 87177; 87209; 87493; 88305; 88342; 89055; 93005; 96374; 99214; 99285; 99291; J2270; J2916; J3010; P9016; Q9967

== ENCOUNTER → 2021-07-12 15:37 | Outpatient (BNVA) | payer OTHER, SELFPAY | PROVIDERS: PCP Internal Medicine; Referring Provider Internal Medicine; Visit Provider Surgery ==

== ENCOUNTER 2021-07-17 14:53 | Outpatient (REF) | payer OTHER, SELFPAY ==
--- NOTE | ~2021-07-17 | PE_ITS ---
EXAMINATION: Fluorine-18 FDG PET/CT Scan CLINICAL INDICATION: Initial treatment management. Invasive carcinoma of the rectum. PROCEDURE: 65 minutes following the intravenous administration of 16.4 mCi of fluorine 18 FDG, images from the base of the skull to the mid thighs were obtained using a combined PET/CT scanner with CT scan based attenuation correction. No oral contrast was administered. No intravenous contrast was administered. Transverse, coronal, sagittal, and volume reconstruction projections were obtained. The patient's blood glucose as determined by a finger stick, was 109 mg/dl immediately prior to injection. Total CT exam dose-length product 775.77 mGy-cm * These CT images were obtained using dose optimization techniques as appropriate, variously including the following: Automated exposure control * Adjustment of mA and/or kV according to patient size (this includes techniques or standardized protocols for targeted exams where dose is matched to indication/reason for exam; i.e. extremities or head) * Use of iterative reconstruction technique COMPARISON: No previous PET/CT scan is available for comparison. CT scan of the abdomen and pelvis dated 07/03/2021 is available for comparison. FINDINGS: (Slice numbers described in this report are numbered superiorly to inferiorly with slice #1 in the head) NECK AND VISUALIZED HEAD: There is mild asymmetrical activity in the true vocal cords with slightly more prominently increased activity present in the right caudate, particularly anteriorly in the left, possibly associated with some minimal right true cord thickening. This appearance is not definitely outside the limits of normal. No other foci of abnormal FDG activity are noted. The distribution of FDG activity is physiological. There is no cervical lymphadenopathy. THORAX: There are no foci of abnormal FDG activity. No pulmonary nodules are visualized. There is no pleural or pericardial fluid or pneumothorax. There is no mediastinal, supraclavicular, or axillary lymphadenopathy. ABDOMEN AND PELVIS: There is intense abnormal FDG activity associated with a large rectal mass presenting is circumferential thickening of the rectal wall. This shows SUVmax 20.9, slice 265/311. On the CT images the rectum in this region measures 6.4 x 5.7 cm in largest transverse dimensions, and approximately 11.3 cm cephalocaudad. There is a weakly FDG avid lymph node suggested along the left side of the superior aspect of this showing SUVmax 2.9, slice 244/311 an corresponding to a soft tissue density that measures approximately 1.2 x 0.6 cm. This is better delineated on the 07/03/2021 CT scan. There is additional diffuse FDG activity present throughout the gastrointestinal tract which is likely physiological, but more intensely increased focal activity is present in the inferior right colon at or just superior to the cecum without definite CT abnormality but showing SUVmax 14.9, slice 191/311 and in an additional focus in the distal left colon showing SUVmax 6.2, slice 198/311, also with no corresponding CT abnormalities. No additional foci of abnormal FDG activity are present in the abdomen or pelvis. The liver, gallbladder, spleen, kidneys, adrenal glands and pancreas appear unremarkable. There is no additional suspicious perirectal lymphadenopathy or retroperitoneal, mesenteric, pelvic or inguinal lymphadenopathy. The prostate appears unremarkable. The bladder is unremarkable. MUSCULOSKELETAL: There is mildly increased FDG activity in the lower cervical spine at the C5-C6 level associated with disc space narrowing and degenerative changes on the CT images. No other foci of abnormal FDG activity are present in the osseous structures. There are degenerative changes in the spine but no suspicious sclerotic or lytic lesions are visualized. Some residual radiopharmaceutical at the injection site in the distal left forearm or left hand is noted. VASCULAR: Diffuse vascular calcifications including coronary are noted. PET/PET CT fusion skull to thigh IMPRESSION: 1. An intensely FDG avid large rectal mass is present as described above, most consistent with a primary rectal malignancy. 2. At least one weakly FDG avid left perirectal lymph node is present and is suspicious for a local metastasis. 3. Prominent focal FDG activity in the right colon just superior to the cecum and in a small focus in the left colon are nonspecific. While these may be physiological, additional malignant lesions at these sites cannot be entirely ruled out although there is no CT evidence on the current CT images or the prior diagnostic CT scan dated 07/03/2021 to suggest the latter. These could be further characterized with colonoscopy, if clinically indicated. 4. There is some asymmetry in the FDG activity in the larynx as described above, possibly associated with some thickening of the right true cord. While this may be physiological, correlation with direct visualization is recommended to rule out a significant laryngeal lesion at this site. 5. No additional abnormalities suspicious for other metastatic or malignant lesions are noted.
== END 2021-07-17 14:54 | disposition home or self-care (01) ==
LOC: HO.PET 14:53
PROVIDERS: PCP Internal Medicine; Visit Provider Internal Medicine Medical Oncology
DX: Z13.89 Encounter for screening for other disorder (principal)

== ENCOUNTER 2021-08-02 13:00 | Outpatient (RCR) | payer OTHER, SELFPAY ==
--- NOTE | 2021-07-16 12:13 | MHC.HEMONC ---
pt called with order from Dr Chau for PET scan (to be done tomorrow) and GI referral for endoscopic ultrasound ([facility] - Dr Wick) Awaiting call back from Rad Onc at [facility] for Consult.
--- NOTE | 2021-07-19 10:44 | HO.HEMONCPA ---
ED FPR PET SCAN APPROVED. AUTH # [id number]. VALID FROM 07/17/21 to 08/31/2021.
--- NOTE | 2021-07-25 10:28 | HO.HEMONCPA ---
ED WAS APPROVED FOR PELVIS MRI . REFERENCE #[id number] DOS: 07/24/2021 to 09/07/2021
--- NOTE | 2021-07-27 11:14 | MHC.HEMONCMA ---
Called and left a voicemail for the patient for the date and time of port placement which is 08/02/2021 at 0830am. I let him know that a nurse from will be calling the day before to answer any questions and go over what he needs to do before hand. I let him know to call our office if there is anything he needs from us.
--- NOTE | 2021-07-31 10:47 | MHC.HEMONCMA ---
Called and booked the patient for his rectal MRI at [facility], unfortunately [facility] does not offer this type of MRI. The nearest hospital that does is [facility] in [place]. Patient is booked there for 08/03/2021 at 12:40pm. There is no prep for this so the patient can eat and drink before hand. Called and spoke with the patient, I explained all of this information to him. I also let him know that he needs to call [phone] to register for the MRI and that they will give him the directions to the MRI department at the hospital. Patient states he understands and agrees with the plan and will call and register now.
--- NOTE | 2021-08-01 17:10 | HO.HEMONCPA ---
PA FOR OXALIPLATIN [id number], LEUCOVORIN J0640, & FLUOROURACIL [id number] APPROVED. AUTH# [id number]. DOS 08/06/21 to 08/06/2022. NO PA REQUIRED FOR EMEND [id number], DRUG COVERED UNDER TX REGIMEN. DOCUMENT SCANNED IN THE CHART.
[2021-08-02 11:59] VITALS: BP 134/79; PULSE 100; RESP 12; TEMP 36; O2SAT 100; BMI 27.0
== END 2021-08-06 08:25 | disposition home or self-care (01) ==
LOC: HO.ONC 13:00
PROVIDERS: PCP Internal Medicine; Visit Provider Internal Medicine Medical Oncology
DX: C20 Malignant neoplasm of rectum (principal)

== ENCOUNTER 2021-08-06 08:59 | Day surgery (SDC) | payer OTHER, SELFPAY ==
--- NOTE | ~2021-08-06 | IR_ITS ---
EXAMINATION: IR PORT-A-CATH PLACEMENT CLINICAL INFORMATION: Rectal cancer. COMPARISON: None TECHNIQUE: Procedure and risks and benefits including bleeding, infection and pneumothorax were discussed with the patient and informed consent was obtained. All elements of maximal sterile barrier technique followed including use of cap, mask, sterile gown, sterile gloves, a sterile full body drape and hand hygiene. Also followed skin preparation with 2% chlorhexidine for cutaneous antisepsis, and sterile ultrasound preparation with sterile gel and probe cover when applicable. The right neck and upper chest were prepped and draped in the usual sterile fashion. The skin and soft tissues of the right lower neck were anesthetized with 1% lidocaine with epinephrine. A small incision was made. Using ultrasound guidance and a 5-Luxembourger micropuncture system, right internal jugular vein access was obtained. Over an .018 wire, a 5-Luxembourger dilator was positioned in the SVC. The skin and soft tissues of the right upper anterior chest were anesthetized with 1% lidocaine with epinephrine. A small incision was made. Using blunt dissection, a subcutaneous pocket was created. A subcutaneous tunnel from the chest to the neck incision was anesthetized with 1% lidocaine with epinephrine. Using a tunneler, a 6.6-Luxembourger single-lumen catheter was tunneled from the neck to the chest incision. The catheter was attached to the port. The port and catheter were flushed. The port was positioned in the subcutaneous pocket and secured using two 2-0 nonabsorbable sutures. An .035 guidewire was advanced through the 5-Luxembourger dilator to the right atrium. The 5-Luxembourger dilator was exchanged for a 7-Luxembourger peel-away sheath. Using bent wire technique, catheter length was estimated and the catheter was cut. The catheter was fed through the peel-away sheath. Catheter length is 21 cm. The neck incision was closed using a 4-0 absorbable subcuticular suture. The chest incision was closed using three 3-0 absorbable interrupted sutures followed by a 4-0 absorbable running subcuticular suture. The port was accessed. The port had good blood return, flushed easily and was instilled with 5 mL heparin 100 unit per mL solution. Real-time ultrasound guidance was used to document vein patency and for needle entry. A formal ultrasound picture was recorded. Fluoroscopy time: 0.6 minutes. The patient received Versed 2 mg, fentanyl 100 mcg and Kefzol 2 g IV during the procedure. Total sedation time was 30 minutes. FINDINGS: There is a right internal jugular Port-A-Cath with tip projecting over the SVC. IR/IR us guide venous access IMPRESSION: Right internal jugular 6.6-Luxembourger single-lumen Dignity Port-A-Cath placement.
--- NOTE | ~2021-08-06 | IR_ITS ---
EXAMINATION: IR PORT-A-CATH PLACEMENT CLINICAL INFORMATION: Rectal cancer. COMPARISON: None TECHNIQUE: Procedure and risks and benefits including bleeding, infection and pneumothorax were discussed with the patient and informed consent was obtained. All elements of maximal sterile barrier technique followed including use of cap, mask, sterile gown, sterile gloves, a sterile full body drape and hand hygiene. Also followed skin preparation with 2% chlorhexidine for cutaneous antisepsis, and sterile ultrasound preparation with sterile gel and probe cover when applicable. The right neck and upper chest were prepped and draped in the usual sterile fashion. The skin and soft tissues of the right lower neck were anesthetized with 1% lidocaine with epinephrine. A small incision was made. Using ultrasound guidance and a 5-Bahraini micropuncture system, right internal jugular vein access was obtained. Over an .018 wire, a 5-Bahraini dilator was positioned in the SVC. The skin and soft tissues of the right upper anterior chest were anesthetized with 1% lidocaine with epinephrine. A small incision was made. Using blunt dissection, a subcutaneous pocket was created. A subcutaneous tunnel from the chest to the neck incision was anesthetized with 1% lidocaine with epinephrine. Using a tunneler, a 6.6-Bahraini single-lumen catheter was tunneled from the neck to the chest incision. The catheter was attached to the port. The port and catheter were flushed. The port was positioned in the subcutaneous pocket and secured using two 2-0 nonabsorbable sutures. An .035 guidewire was advanced through the 5-Bahraini dilator to the right atrium. The 5-Bahraini dilator was exchanged for a 7-Bahraini peel-away sheath. Using bent wire technique, catheter length was estimated and the catheter was cut. The catheter was fed through the peel-away sheath. Catheter length is 21 cm. The neck incision was closed using a 4-0 absorbable subcuticular suture. The chest incision was closed using three 3-0 absorbable interrupted sutures followed by a 4-0 absorbable running subcuticular suture. The port was accessed. The port had good blood return, flushed easily and was instilled with 5 mL heparin 100 unit per mL solution. Real-time ultrasound guidance was used to document vein patency and for needle entry. A formal ultrasound picture was recorded. Fluoroscopy time: 0.6 minutes. The patient received Versed 2 mg, fentanyl 100 mcg and Kefzol 2 g IV during the procedure. Total sedation time was 30 minutes. FINDINGS: There is a right internal jugular Port-A-Cath with tip projecting over the SVC. IR/IR cvc repo tunnel w port IMPRESSION: Right internal jugular 6.6-Bahraini single-lumen Dignity Port-A-Cath placement.
[2021-08-06 09:44] VITALS: BMI 24.4
[2021-08-06 10:03] LABS: MANUAL DIFF FLAG NO
[2021-08-06 10:12] LABS: Basophils Percent Auto 0.6 % (0-2); Eosinophils Absolute Auto 0.2 X10*3/uL (0.0-0.4); Eosinophils Percent Auto 2.6 % (0-4); Hematocrit 34.1 % (42-52); Hemoglobin 10.4 g/dl (14.0-18.0); Imm Gran Abs Auto 0.02 X10*3/uL (0.00-0.03); Imm Gran Pct Auto 0.3 % (0.0-0.4); Lymphocytes Absolute Auto 0.5 X10*3/uL (1.2-4.9); Lymphocytes Percent Auto 7.6 % (20-40); Mean Corpuscular HGB Conc 30.5 g/dl (31.0-36.0); Mean Corpuscular Hemoglobin 23.6 pg (27.0-33.0); Mean Corpuscular Volume 77.5 fL (80-98); Mean Platelet Volume 8.8 fL (9.4-12.4); Monocytes Absolute Auto 0.5 X10*3/uL (0.1-1.2); Neutrophils Absolute Auto 5.6 X10*3/uL (2.0-8.3); Neutrophils Percent Auto 81.9 % (45-73); Platelet Count 281 X10*3/uL (160-400); White Blood Count 6.8 X10*3/uL (4.8-10.8)
[2021-08-06 10:29] LABS: Prothrombin Time 10.8 SEC (9.9-13.0)
[2021-08-06 10:32] LABS: Partial Thromboplastin Time 34.9 SEC (24.1-38.0)
--- NOTE | 2021-08-06 12:49 | HO.RADPN ---
RADIOLOGY Narrative Narrative: Right IJ 6.6 fr Dignity port placed. Tip in SVC.
[2021-08-06 13:02] VITALS: BP 119/65; PULSE 54; RESP 16; TEMP 36.2; O2SAT 99
[2021-08-06 13:15] VITALS: BP 122/62; PULSE 52; RESP 16; O2SAT 99
[2021-08-06 13:29] VITALS: BP 119/69; PULSE 54; RESP 16; O2SAT 99
[2021-08-06 14:00] VITALS: BP 105/48; PULSE 80; RESP 18; O2SAT 98
[2021-08-06] MEDS: Lidocaine HCl 1 % MPF 5 ML VIAL INFILTRATI ×2 (14:05)
== END 2021-08-06 14:05 | disposition home or self-care (01) ==
PROVIDERS: PCP Internal Medicine; Visit Provider Radiology Diagnostic Radiology
DX: Z45.2 Encounter for adjustment and management of vascular access device (principal); C20 Malignant neoplasm of rectum; I10 Essential (primary) hypertension; G62.9 Polyneuropathy, unspecified; F41.9 Anxiety disorder, unspecified; F17.210 Nicotine dependence, cigarettes, uncomplicated; F12.90 Cannabis use, unspecified, uncomplicated; Z79.899 Other long term (current) drug therapy
CPT/HCPCS: 36415; 36561; 36597; 76937; 85025; 85610; 85730; 99152; 99153; C1769; C1788; J0690; J1642; J2250; J3010

== ENCOUNTER → 2021-08-13 10:28 | Outpatient (BNVA) | payer OTHER, SELFPAY | PROVIDERS: PCP Internal Medicine; Referring Provider Internal Medicine; Visit Provider Surgery ==

== ENCOUNTER 2021-08-16 14:00 | Outpatient (RCR) | payer OTHER, SELFPAY ==
[2021-07-23 13:58] VITALS: BP 122/86; PULSE 101; RESP 14; TEMP 36.2; O2SAT 99; BMI 24.4
[2021-07-23 14:43] LABS: MANUAL DIFF FLAG NO
[2021-07-23 15:09] LABS: Alanine Aminotransferase 6 U/L (0-40); Albumin Level 4.2 g/dL (3.5-5.0); Alkaline Phosphatase 78 U/L (39-117); Anion Gap 14 (12-20); Aspartate Amino Transferase 18 U/L (5-37); Bilirubin Total 0.5 mg/dL (0.0-1.0); Blood Urea Nitrogen 9 mg/dL (9-16); Calcium 9.5 mg/dL (8.4-10.2); Carbon Dioxide 27 mmol/L (22-29); Chloride 103 mmol/L (96-108); Creatinine Clr Calc Pharmacy 127.5; Estimated Glomerular Filt Rate > 60; Glucose Random 89 mg/dL (60-115); Potassium 4.5 mmol/L (3.3-5.1); Sodium 139 mmol/L (135-145); Total Protein 7.1 g/dL (6.5-8.0)
[2021-07-23 15:46] LABS: Basophils Absolute Auto 0.1 X10*3/uL (0.0-0.2); Eosinophils Absolute Auto 0.2 X10*3/uL (0.0-0.4); Eosinophils Percent Auto 2.3 % (0-4); Hematocrit 39.1 % (42-52); Imm Gran Abs Auto 0.03 X10*3/uL (0.00-0.03); Imm Gran Pct Auto 0.3 % (0.0-0.4); Lymphocytes Absolute Auto 0.9 X10*3/uL (1.2-4.9); Lymphocytes Percent Auto 9.4 % (20-40); Mean Corpuscular HGB Conc 30.7 g/dl (31.0-36.0); Mean Corpuscular Hemoglobin 23.5 pg (27.0-33.0); Mean Corpuscular Volume 76.7 fL (80-98); Mean Platelet Volume 9.5 fL (9.4-12.4); Monocytes Absolute Auto 0.6 X10*3/uL (0.1-1.2); Monocytes Percent Auto 6.8 % (2-11); Neutrophils Absolute Auto 7.2 X10*3/uL (2.0-8.3); Neutrophils Percent Auto 80.2 % (45-73); Platelet Count 543 X10*3/uL (160-400)
--- NOTE | 2021-07-23 16:20 | MHC.HEMONCMA ---
Patient came in for a consult today, states he is in alot of pain and worried. Clinical summary was reviewed and updated. Patient had labs, and will return in 2 weeks for a follow up.
--- NOTE | 2021-07-24 09:13 | HE.ONCSEC ---
On 07/24/21 spoke with Maria Fernanda at [facility] [phone]. I requested a referral and she said she will need to call patient so that he can call insurance company as his card still shows Dr. Karey Lutz as his PCP (This MD is no longer working for [facility]) therefore the insurance will not issue a referral until the Pt changes his PCP with the insurance. Maria Fernanda said she will work with patient and his insurance until she obtains the referral. I will continue checking the status.
--- NOTE | 2021-08-02 12:37 | PM.HEMONCPN ---
Medical Summary - Medical Summary Date of Service: 08/02/21 Chief complaint: Follow-up for: Rectal carcinoma. Medical Summary: DIAGNOSIS: Rectal carcinoma. Interval History Interval history: This is a pleasant 56-year-old gentleman here for a follow-up visit. He tells me that his pain control is better since the morphine was added. He denies abdominal pain. No nausea or vomiting. He has been constipated since he started the oxycodone. He has been using stool softeners. He gets occasional rectal bleeding. Not severe. Appetite is not that good. He has lost weight. He was originally 250 lbs. He then lost some weight intentionally. Now he is down to 175. His energy level has improved after the blood transfusion he received in house. Presenting history: He presented with bloody bowel movement. He typically has to have bowel moment shortly eating. He has been taking Ibuprofen 400 mg 3 to 4 times a day for a few month to treat nerve pain around rectal area. His appetite is not that good. He has lost nearly 50 Ib over the course of year, some of it has been intentional. No abdominal pain, no fever. No prior colonoscopy. CT scan of the abdomen pelvis from 07/03: 1. Prominent circumferential thickening around them with nodular serosal surface, induration of the perirectal soft tissues, and perirectal adenopathy. Findings may represent neoplasm with secondary inflammation or severe inflammatory proctitis. 2. No proximal obstruction, pneumatosis, free air, or fluid collection. 3. Liver and spleen normal. No retroperitoneal adenopathy. No ascites. Colonoscopy from 07/05 revealed: A mass in the rectum beginning at about 10 cm from the anal verge and extending to just about the anal sphincter, was a circumferential ulcerated apple-core type lesion, which was friable and bled easily with instrumentation. This appeared to be a carcinoma and was biopsied. It was impossible to retroflex the endoscope because of the location of the tumor. There did appear to be some tumor fragments extending through the anal sphincter as the scope was withdrawn. CEA level: 6.20. Past medical history: Anxiety, HTN no longer on meds. Review of Systems - Constitutional Reports no additional constitutional complaints - Eyes Reports no additional eye complaints - ENT Reports no additional ear, nose, mouth, and throat complaints - Cardiovascular Reports no additional cardiovascular complaints - Respiratory Reports no additional respiratory complaints - Gastrointestinal Reports no additional gastrointestinal complaints - Genitourinary Genitourinary: Reports no additional male genitourinary complaints - Musculoskeletal Reports no additional musculoskeletal complaints - Integumentary/Breasts Skin/Breast: Reports no additional skin complaints - Neurologic Reports no additional neurologic complaints - Psychiatric Reports no additional psychiatric complaints - Endocrine Reports no additional endocrine complaints - Hematologic/Lymphatic Reports no additional hematologic/lymphatic complaints - Allergic/Immunologic Reports no additional allergic/immunologic complaints [facility] Medical History: Medical History (Last Reviewed 08/02/21 @ 12:00 by Eleazar Menard) Anxiety HTN (hypertension) Neuropathy Rectal adenocarcinoma Rectal mass Functional capacity: independent ambulation Patient : No Family History: Family History (Last Reviewed 08/02/21 @ 12:00 by Eleazar Menard) Mother Melanoma DVT (deep venous thrombosis) Family/Other Melanoma Surgical History: Surgical History (Last Reviewed 08/02/21 @ 12:00 by Eleazar Menard) History of mandibular surgery Social History: Social History (Last Reviewed 08/02/21 @ 12:00 by Eleazar Menard) Living Situation History: Household Members: Other Housing: House Do you presently have visiting nurse or other home services: No Alcohol History: Alcohol intake: former Alcohol History Details: Alcohol intake frequency: does not drink Tobacco History: Patient Tobacco Use Status: Current everyday Tobacco Tobacco use type: Cigarette Years Smoked: 30 Substance Use History: Substance Use Type: Marijuana Advance Directives: Advance Directives Date on File: 07/03/21 Occupation Assessmet: service: No Current occupational status: employed Oncology Screenings - ECOG Performance Status ECOG Performance Status: 0 Home Medications and Allergies Home Medications Medication Instructions Recorded Confirmed Type sertraline 25 mg tablet 1 tab PO DAILY 07/03/21 08/02/21 History Allergies Allergy/AdvReac Type Severity Reaction Status Date / Time No Known Allergies Allergy Verified 07/23/21 14:03 [No Known Allergies*] Exam Vital signs: Vital Signs Temp 97.2 F 07/23/21 13:58 Pulse 101 H 07/23/21 13:58 Resp 14 07/23/21 13:58 BP 122/86 07/23/21 13:58 Pulse Ox 99 07/23/21 13:58 Weight 81.8 kg Body Mass Index 24.4 - Constitutional Present: no acute distress - Routine HEENT Exam Head: Present: normal inspection Eye: Present: normal appearance ENT: Present: mucous membranes moist - Routine Neck Exam Present: full ROM - Routine Respiratory Exam Present: CTAB - Routine Cardiovascular Exam Cardiovascular: Present: RRR, S1, S2 - Routine Abdominal Exam Present: soft, nontender - Routine Extremities Exam Present: nontender - Routine Back/Spine/Pelvis Exam Back/Spine: Present: full ROM - Routine Skin Exam Present: intact - Routine Neurological Exam Present: alert, oriented X3 - Routine Psychiatric Exam Present: normal affect Data - Labs CBC & Chem 7: 07/23/21 14:33 07/23/21 14:33 Labs: 07/23/21 14:33 Complete Blood Count Auto Diff Routine Comprehensive Met. Panel Routine Laboratory Last Values WBC 9.0 X10*3/uL (4.8-10.8) 07/23/21 14:33 RBC 5.10 X10*6/uL (4.60-5.80) D 07/23/21 14:33 Hgb 12.0 g/dl (14.0-18.0) L D 07/23/21 14:33 Hct 39.1 % (42-52) L D 07/23/21 14:33 MCV 76.7 fL (80-98) L 07/23/21 14:33 MCH 23.5 pg (27.0-33.0) L 07/23/21 14:33 MCHC 30.7 g/dl (31.0-36.0) L 07/23/21 14:33 RDW Not Reportable 07/23/21 14:33 Plt Count 543 X10*3/uL (160-400) H D 07/23/21 14:33 MPV 9.5 fL (9.4-12.4) 07/23/21 14:33 Immature Gran % (Auto) 0.3 % (0.0-0.4) 07/23/21 14:33 Neut % (Auto) 80.2 % (45-73) H 07/23/21 14:33 Lymph % (Auto) 9.4 % (20-40) L 07/23/21 14:33 [place] % (Auto) 6.8 % (2-11) 07/23/21 14:33 Eos % (Auto) 2.3 % (0-4) 07/23/21 14:33 Baso % (Auto) 1.0 % (0-2) 07/23/21 14:33 Lymph # (Auto) 0.9 X10*3/uL (1.2-4.9) L 07/23/21 14:33 [place] # (Auto) 0.6 X10*3/uL (0.1-1.2) 07/23/21 14:33 Eos # (Auto) 0.2 X10*3/uL (0.0-0.4) 07/23/21 14:33 Baso # (Auto) 0.1 X10*3/uL (0.0-0.2) 07/23/21 14:33 Abs Immat Gran (auto) 0.03 X10*3/uL (0.00-0.03) 07/23/21 14:33 Absolute Neuts (auto) 7.2 X10*3/uL (2.0-8.3) 07/23/21 14:33 Absolute Nucleated RBC 0.000 X10*3/uL (0.0-0.012) 07/23/21 14:33 Nucleated RBC % (auto) 0.0 /100WBC (0.0-0.2) 07/23/21 14:33 Sodium 139 mmol/L (135-145) 07/23/21 14:33 Potassium 4.5 mmol/L (3.3-5.1) D 07/23/21 14:33 Chloride 103 mmol/L (96-108) 07/23/21 14:33 Carbon Dioxide 27 mmol/L (22-29) 07/23/21 14:33 Anion Gap 14 (12-20) 07/23/21 14:33 BUN 9 mg/dL (9-16) 07/23/21 14:33 Creatinine 0.71 mg/dL (0.5-1.4) 07/23/21 14:33 Estim Creat Clear Calc 127.5 07/23/21 14:33 Estimated GFR > 60 07/23/21 14:33 Random Glucose 89 mg/dL (60-115) 07/23/21 14:33 Calcium 9.5 mg/dL (8.4-10.2) D 07/23/21 14:33 Total Bilirubin 0.5 mg/dL (0.0-1.0) 07/23/21 14:33 AST 18 U/L (5-37) 07/23/21 14:33 ALT 6 U/L (0-40) 07/23/21 14:33 Alkaline Phosphatase 78 U/L (39-117) 07/23/21 14:33 Total Protein 7.1 g/dL (6.5-8.0) 07/23/21 14:33 Albumin 4.2 g/dL (3.5-5.0) 07/23/21 14:33 Blood Type Cancelled 07/23/21 14:33 Antibody Screen Cancelled 07/23/21 14:33 Assessment and Plan Patient Active problem list reviewed?: Yes (1) Rectal adenocarcinoma Status: Acute Assessment and plan: 56-year-old gentleman with rectal bleeding and pain. He has lost weight. CT scan of the abdomen pelvis from 07/03: 1. Prominent circumferential thickening around them with nodular serosal surface, induration of the perirectal soft tissues, and perirectal adenopathy. Findings may represent neoplasm with secondary inflammation or severe inflammatory proctitis. 2. No proximal obstruction, pneumatosis, free air, or fluid collection. 3. Liver and spleen normal. No retroperitoneal adenopathy. No ascites. Colonoscopy from 07/05 revealed: In the rectum beginning at about 10 cm from the anal verge and extending to just about the anal sphincter, was a circumferential ulcerated apple-core type lesion, which was friable and bled easily with instrumentation. This appeared to be a carcinoma and was biopsied. It was impossible to retroflex the endoscope because of the location of the tumor. There did appear to be some tumor fragments extending through the anal sphincter as the scope was withdrawn. CEA level: 6.20. Pathology revealed: Focus of invasive adenocarcinoma involving ulcerated colonic mucosa in a background of high-grade dysplasia. IHC studies for DNA mismatch repair proteins are pending. Pt. has locally advanced rectal carcinoma. He will need combined modality therapy with radiation along with chemotherapy. I proceeded with further staging work up, with a PET scan. This was done on , and revealed: 1. An intensely FDG avid large rectal mass is present as described above, most consistent with a primary rectal malignancy. 2. At least one weakly FDG avid left perirectal lymph node is present and is suspicious for a local metastasis. 3. Prominent focal FDG activity in the right colon just superior to the cecum and in a small focus in the left colon are nonspecific. While these may be physiological, additional malignant lesions at these sites cannot be entirely ruled out although there is no CT evidence on the current CT images or the prior diagnostic CT scan dated 07/03/2021 to suggest the latter. These could be further characterized with colonoscopy, if clinically indicated. 4. There is some asymmetry in the FDG activity in the larynx as described above, possibly associated with some thickening of the right true cord. While this may be physiological, correlation with direct visualization is recommended to rule out a significant laryngeal lesion at this site. 5. No additional abnormalities suspicious for other metastatic or malignant lesions are noted. Total neoadjuvant therapy can be considered in which preop treatment includes not only radiation but also 4 months of systemic chemotherapy, is a reasonable alternative to long course chemoradiation alone for patients with locally advanced rectal cancer who are at high risk for the margin positive resection,(cT4 disease or an involved mesorectal fascia) as well as for those with clearly node positive disease and a low-lying rectal tumor, given the increase compliance with chemotherapy, the improved local control and ability to consider non operative treatment for those with a complete clinical response who declined surgery or are poor surgical candidates. Support for this approach is provided by a retrospective cohort analysis using records from [facility] of the 811 patients who presented with T3/4 or node positive rectal cancer between 2008 and 2014, 320 received chemoradiation with planned adjuvant chemotherapy while 308 had induction 5 FU and oxaliplatin treatment followed by chemoradiotherapy (Noel et al, DERRELL Oncol,2018.) Patient is receiving neoadjuvant chemotherapy received a greater percentage of the planned chemotherapy then did dose who received postop therapy. For the patient's undergoing surgery, the PCR rate with total neoadjuvant therapy was not higher than the neoadjuvant chemoradiation therapy and planned adjuvant therapy(18 versus 17%). However the complete response rate which included both the pCRs in those who underwent surgery and a sustained cCR rate for at least 12 months post treatment, in those who under went surgery and the SUstained cCR rate for at least 12 months post treatment, in those who did not undergo surgery was higher with total neoadjuvant therapy, (36 versus 25%.) PLAN: Given the above encouraging results, the recommendation is for total neoadjuvant therapy: Induction chemotherapy with [id number] for 8 cycles. This will be followed by repeat imaging. And then combined modality therapy with radiation along with oral capecitabine. That would limit the amount of radiation needed. Then to proceed with surgery as indicated. He will have a Port-A-Cath placed in the near future. He will undergo chemotherapy teaching today. He is scheduled for an MRI of the pelvis at [facility] on 08/08. He return in one week to get started. On 08/13. All his questions were answered to his satisfaction. Thank you, CC: Dr. Nice. Dr. Pan. Dr. Barahona. Dr. Guzmán. - Time Spent With Patient Time Spent with Patient (in minutes): 35
[2021-08-02 13:07] VITALS: BP 134/79; PULSE 100; RESP 12; TEMP 36; O2SAT 100; BMI 24.0
--- NOTE | 2021-08-02 13:34 | MHC.HEMONC ---
Chemotherapy teaching completed: FOLFOX. All questions and concerns addressed with patient. Consent signed. Exam with Dr. Chau. Rescheduled port placement for 08/06/21. MRI (rectal) scheduled for 08/08/21 at 2:10 at [facility]. Patient aware. Dr. Chau states we can schedule chemotherapy for following week. Start date 08/13/21. Dr. Chau to place orders for Zofran and Dexamethasone for home.
--- NOTE | 2021-08-02 14:51 | MHC.HEMONCMA ---
Pt came in for onc follow up and states he is doing fine, clinical summary was made and labs were drawn. pt will be in 08/07/2021 for chemo.
--- NOTE | 2021-08-02 14:57 | P.PNHO_ITS ---
Medical Summary - Medical Summary Date of Service: 07/23/21 Chief complaint: Follow-up for: Rectal carcinoma. Medical Summary: DIAGNOSIS: RECTAL CARCINOMA. Interval History Interval history: Danilo Beckwith is a pleasant 56 year old gentleman, here for a follow-up visit. He complains of severe pain in the rectal area. Grades it as 10 on 1-10 scale. Prior to admission he said the Motrin appeared to have been helping. He has been taking oxycodone prescribed by Dr. Barahona. He has been taking extra pills. He does not have any more he says. Dr. Barahona just sent in a prescription today. He took some Motrin last night and it helped. He denies abdominal pain. No nausea or vomiting. He has been constipated since he started the oxycodone. He has been using stool softeners. He gets occasional rectal bleeding. Not severe. Appetite is not that good. He has lost weight. He was originally 250 lbs. He then lost some weight intentionally. Now he is down to 175. His energy level has improved after the blood transfusion he received in house. Presenting history: He presented with bloody bowel movement. He typically has to have bowel moment shortly eating. He has been taking Ibuprofen 400 mg 3 to 4 times a day for a few month to treat nerve pain around rectal area. His appetite is not that good. He has lost nearly 50 Ib over the course of year, some of it has been intentional. No abdominal pain, no fever. No prior colonoscopy. CT scan of the abdomen pelvis from 07/03: 1. Prominent circumferential thickening around them with nodular serosal surfa ce, induration of the perirectal soft tissues, and perirectal adenopathy. Findings may represent neoplasm with secondary inflammation or severe inflammatory proctitis. 2. No proximal obstruction, pneumatosis, free air, or fluid collection. 3. Liver and spleen normal. No retroperitoneal adenopathy. No ascites. Colonoscopy from 07/05 revealed: A mass in the rectum beginning at about 10 cm from the anal verge and extending to just about the anal sphincter, was a circumferential ulcerated apple-core type lesion, which was friable and bled easily with instrumentation. This appeared to be a carcinoma and was biopsied. It was impossible to retroflex the endoscope because of the location of the tumor. There did appear to be some tumor fragments extending through the anal sphincter as the scope was withdrawn. CEA level: 6.20. Past medical history: Anxiety, HTN no longer on meds. Review of Systems - Constitutional Reports no additional constitutional complaints, Reports lack of energy, Reports weight loss - Eyes Reports no additional eye complaints - ENT Reports no additional ear, nose, mouth, and throat complaints - Cardiovascular Reports no additional cardiovascular complaints - Respiratory Reports no additional respiratory complaints - Gastrointestinal Reports no additional gastrointestinal complaints - Genitourinary Genitourinary: Reports no additional male genitourinary complaints - Musculoskeletal Reports no additional musculoskeletal complaints - Integumentary/Breasts Skin/Breast: Reports no additional skin complaints - Neurologic Reports no additional neurologic complaints - Psychiatric Reports no additional psychiatric complaints - Endocrine Reports no additional endocrine complaints - Hematologic/Lymphatic Reports no additional hematologic/lymphatic complaints - Allergic/Immunologic Reports no additional allergic/immunologic complaints [facility] Medical History: Medical History (Last Reviewed 08/02/21 @ 12:00 by Eleazar Menard) Anxiety HTN (hypertension) Neuropathy Rectal adenocarcinoma Rectal mass Functional capacity: independent ambulation Patient : No Family History: Family History (Last Reviewed 08/02/21 @ 12:00 by Eleazar Menard) Mother Melanoma DVT (deep venous thrombosis) Family/Other Melanoma Surgical History: Surgical History (Last Reviewed 08/02/21 @ 12:00 by Eleazar Menard) History of mandibular surgery Social History: Social History (Last Reviewed 08/02/21 @ 12:00 by Eleazar Menard) Living Situation History: Household Members: Other Housing: House Do you presently have visiting nurse or other home services: No Alcohol History: Alcohol intake: former Alcohol History Details: Alcohol intake frequency: does not drink Tobacco History: Patient Tobacco Use Status: Current everyday Tobacco Tobacco use type: Cigarette Years Smoked: 30 Substance Use History: Substance Use Type: Marijuana Advance Directives: Advance Directives Date on File: 07/03/21 Occupation Assessmet: service: No Current occupational status: employed Oncology Screenings - ECOG Performance Status ECOG Performance Status: 0 Home Medications and Allergies Home Medications Medication Instructions Recorded Confirmed Type sertraline 25 mg tablet 1 tab PO DAILY 07/03/21 08/02/21 History Allergies Allergy/AdvReac Type Severity Reaction Status Date / Time No Known Allergies Allergy Verified 07/23/21 14:03 [No Known Allergies*] Exam Vital signs: Vital Signs Temp 96.8 F 08/02/21 13:07 Pulse 100 08/02/21 13:07 Resp 12 08/02/21 13:07 BP 134/79 08/02/21 13:07 Pulse Ox 100 08/02/21 13:07 Intake & Output 08/01/21 08/02/21 08/02/21 18:59 06:59 18:59 Other: Weight 80.6 kg [place] Weight in Grams 09996 Weight 80.6 kg Body Mass Index 24.0 - Constitutional Present: no acute distress - Routine HEENT Exam Head: Present: normal inspection Eye: Present: normal appearance ENT: Present: mucous membranes moist - Routine Neck Exam Present: full ROM - Routine Respiratory Exam Present: CTAB - Routine Cardiovascular Exam Cardiovascular: Present: RRR, S1, S2 - Routine Abdominal Exam Present: soft, nontender - Routine Extremities Exam Present: nontender - Routine Back/Spine/Pelvis Exam Back/Spine: Present: full ROM - Routine Skin Exam Present: intact - Routine Neurological Exam Present: alert, oriented X3 - Routine Psychiatric Exam Present: normal affect Data - Labs CBC & Chem 7: 07/23/21 14:33 07/23/21 14:33 Labs: 07/23/21 14:33 Complete Blood Count Auto Diff Routine Comprehensive Met. Panel Routine Laboratory Last Values WBC 9.0 X10*3/uL (4.8-10.8) 07/23/21 14:33 RBC 5.10 X10*6/uL (4.60-5.80) D 07/23/21 14:33 Hgb 12.0 g/dl (14.0-18.0) L D 07/23/21 14:33 Hct 39.1 % (42-52) L D 07/23/21 14:33 MCV 76.7 fL (80-98) L 07/23/21 14:33 MCH 23.5 pg (27.0-33.0) L 07/23/21 14:33 MCHC 30.7 g/dl (31.0-36.0) L 07/23/21 14:33 RDW Not Reportable 07/23/21 14:33 Plt Count 543 X10*3/uL (160-400) H D 07/23/21 14:33 MPV 9.5 fL (9.4-12.4) 07/23/21 14:33 Immature Gran % (Auto) 0.3 % (0.0-0.4) 07/23/21 14:33 Neut % (Auto) 80.2 % (45-73) H 07/23/21 14:33 Lymph % (Auto) 9.4 % (20-40) L 07/23/21 14:33 Falls % (Auto) 6.8 % (2-11) 07/23/21 14:33 Eos % (Auto) 2.3 % (0-4) 07/23/21 14:33 Baso % (Auto) 1.0 % (0-2) 07/23/21 14:33 Lymph # (Auto) 0.9 X10*3/uL (1.2-4.9) L 07/23/21 14:33 Falls # (Auto) 0.6 X10*3/uL (0.1-1.2) 07/23/21 14:33 Eos # (Auto) 0.2 X10*3/uL (0.0-0.4) 07/23/21 14:33 Baso # (Auto) 0.1 X10*3/uL (0.0-0.2) 07/23/21 14:33 Abs Immat Gran (auto) 0.03 X10*3/uL (0.00-0.03) 07/23/21 14:33 Absolute Neuts (auto) 7.2 X10*3/uL (2.0-8.3) 07/23/21 14:33 Absolute Nucleated RBC 0.000 X10*3/uL (0.0-0.012) 07/23/21 14:33 Nucleated RBC % (auto) 0.0 /100WBC (0.0-0.2) 07/23/21 14:33 Sodium 139 mmol/L (135-145) 07/23/21 14:33 Potassium 4.5 mmol/L (3.3-5.1) D 07/23/21 14:33 Chloride 103 mmol/L (96-108) 07/23/21 14:33 Carbon Dioxide 27 mmol/L (22-29) 07/23/21 14:33 Anion Gap 14 (12-20) 07/23/21 14:33 BUN 9 mg/dL (9-16) 07/23/21 14:33 Creatinine 0.71 mg/dL (0.5-1.4) 07/23/21 14:33 Estim Creat Clear Calc 127.5 07/23/21 14:33 Estimated GFR > 60 07/23/21 14:33 Random Glucose 89 mg/dL (60-115) 07/23/21 14:33 Calcium 9.5 mg/dL (8.4-10.2) D 07/23/21 14:33 Total Bilirubin 0.5 mg/dL (0.0-1.0) 07/23/21 14:33 AST 18 U/L (5-37) 07/23/21 14:33 ALT 6 U/L (0-40) 07/23/21 14:33 Alkaline Phosphatase 78 U/L (39-117) 07/23/21 14:33 Total Protein 7.1 g/dL (6.5-8.0) 07/23/21 14:33 Albumin 4.2 g/dL (3.5-5.0) 07/23/21 14:33 Blood Type Cancelled 07/23/21 14:33 Antibody Screen Cancelled 07/23/21 14:33 Assessment and Plan Patient Active problem list reviewed?: Yes (1) Rectal adenocarcinoma Status: Acute Assessment and plan: 56-year-old gentleman with rectal bleeding and pain. He has lost weight. CT scan of the abdomen pelvis from 07/03: 1. Prominent circumferential thickening around them with nodular serosal surface, induration of the perirectal soft tissues, and perirectal adenopathy. Findings may represent neoplasm with secondary inflammation or severe inflammatory proctitis. 2. No proximal obstruction, pneumatosis, free air, or fluid collection. 3. Liver and spleen normal. No retroperitoneal adenopathy. No ascites. Colonoscopy from 07/05 revealed: In the rectum beginning at about 10 cm from the anal verge and extending to just about the anal sphincter, was a circumferential ulcerated apple-core type lesion, which was friable and bled easily with instrumentation. This appeared to be a carcinoma and was biopsied. It was impossible to retroflex the endoscope because of the location of the tumor. There did appear to be some tumor fragments extending through the anal sphincter as the scope was withdrawn. CEA level: 6.20. Pathology revealed: Focus of invasive adenocarcinoma involving ulcerated colonic mucosa in a background of high-grade dysplasia. IHC studies for DNA mismatch repair proteins are pending. Pt. has locally advanced rectal carcinoma. Most likely he will need combined modality therapy with radiation along with ch emotherapy. I proceeded with further staging work up, with a PET scan. This was done on , and revealed: 1. An intensely FDG avid large rectal mass is present as described above, most consistent with a primary rectal malignancy. 2. At least one weakly FDG avid left perirectal lymph node is present and is suspicious for a local metastasis. 3. Prominent focal FDG activity in the right colon just superior to the cecum and in a small focus in the left colon are nonspecific. While these may be physiological, additional malignant lesions at these sites cannot be entirely ruled out although there is no CT evidence on the current CT images or the prior diagnostic CT scan dated 07/03/2021 to suggest the latter. These could be further characterized with colonoscopy, if clinically indicated. 4. There is some asymmetry in the FDG activity in the larynx as described above, possibly associated with some thickening of the right true cord. While this may be physiological, correlation with direct visualization is recommended to rule out a significant laryngeal lesion at this site. 5. No additional abnormalities suspicious for other metastatic or malignant lesions are noted. Will treat according to the Andrea article from April 2018: Total neoadjuvant therapy for locally advanced rectal cancer. This was a retrospective analysis using [facility] records. Eight hundred eleven patients were identified with T3/4 locally advanced rectal cancer. 320 received chemo RT with planned adjuvant chemotherapy and 308 received DEMARCUS followed by chemo RT. The results suggested that DEMARCUS treatment facilitates delivery of planned systemic therapy and is a viable treatment strategy for rectal cancer. Total neoadjuvant therapy can be considered in which preop treatment includes not only radiation but also 4 months of systemic chemotherapy, is a reasonable alternative to long course chemoradiation alone for patients with locally advanced rectal cancer who are at high risk for the margin positive resection,(cT4 disease or an involved mesorectal fascia) as well as for those with clearly node positive disease and a low-lying rectal tumor, given the increase compliance with chemotherapy, the improved local control and ability to consider non operative treatment for those with a complete clinical response who declined surgery or are poor surgical candidates. Support for this approach is provided by a retrospective cohort analysis using records from [facility] of the 811 patients who presented with T3/4 or node positive rectal cancer between 2008 and 2015, 320 received chemoradiation with planned adjuvant chemotherapy while 308 had induction 5 FU and oxaliplatin treatment followed by chemoradiotherapy (Noel et al, ANDREA Oncol,2018.) Patient is receiving neoadjuvant chemotherapy received a greater percentage of the planned chemotherapy then did dose who received postop therapy. For the patient's undergoing surgery, the PCR rate with total neoadjuvant therapy was not higher than the neoadjuvant chemoradiation therapy and planned adjuvant therapy(18 versus 17%). However the complete response rate which included both the pCRs in those who underwent surgery and a sustained cCR rate for at least 12 months post treatment, in those who under went surgery and the SUstained cCR rate for at least 12 months post treatment, in those who did not undergo surgery was higher with total neoadjuvant therapy, (36 versus 25%.) PLAN: I will arrange for an MRI of the pelvis with endorectal coil at [facility]. This is been scheduled for 08/08. He has an appointment with Dr. Lucas to do an exam of the suspicious findings on the vocal cords as seen on the PET scan.( the exam was actually benign.) He has an appointment with radiation department at [facility]. I will proceed with a Port-A-Cath placement. Will arrange for Chemotherapy, once the above studies have been completed. He will return for chemotherapy teaching, next week. I sent a prescription for MS Contin 30 mg b.i.d. for long-acting affect. He will machine pecan picker the oxycodone prescription sent in by Dr. Barahona. He will undergo genetic testing in a few weeks. Thanks, CC: Dr. Pan. Dr. Barahona. Dr. Marley. - Time Spent With Patient Time Spent with Patient (in minutes): 40
--- NOTE | 2021-08-06 13:37 | MHC.HEMONC ---
pt is having MRO on Fri so we had to move chemo to the vs tomorrow so pt will be free of chavez needle (5FU cont infusion for 46 hrs). Left message for FINANCIAL ANALYST INTERN to give him re: this change in schedule.
[2021-08-14 08:25] VITALS: BP 101/64; PULSE 75; RESP 16; TEMP 36.6; O2SAT 98; BMI 23.8
[2021-08-14 09:14] LABS: MANUAL DIFF FLAG NO
[2021-08-14 09:32] LABS: Basophils Percent Auto 0.5 % (0-2); Eosinophils Absolute Auto 0.3 X10*3/uL (0.0-0.4); Eosinophils Percent Auto 4.1 % (0-4); Hematocrit 30.8 % (42-52); Hemoglobin 9.6 g/dl (14.0-18.0); Imm Gran Abs Auto 0.01 X10*3/uL (0.00-0.03); Imm Gran Pct Auto 0.2 % (0.0-0.4); Lymphocytes Absolute Auto 0.6 X10*3/uL (1.2-4.9); Mean Corpuscular HGB Conc 31.2 g/dl (31.0-36.0); Mean Corpuscular Hemoglobin 24.5 pg (27.0-33.0); Mean Corpuscular Volume 78.6 fL (80-98); Mean Platelet Volume 8.7 fL (9.4-12.4); Monocytes Absolute Auto 0.5 X10*3/uL (0.1-1.2); Monocytes Percent Auto 7.1 % (2-11); Neutrophils Absolute Auto 5.3 X10*3/uL (2.0-8.3); Neutrophils Percent Auto 79.1 % (45-73); Platelet Count 301 X10*3/uL (160-400); Red Blood Count 3.92 X10*6/uL (4.60-5.80); White Blood Count 6.6 X10*3/uL (4.8-10.8)
[2021-08-14 09:35] LABS: Alanine Aminotransferase < 6 U/L (0-40); Albumin Level 3.4 g/dL (3.5-5.0); Alkaline Phosphatase 59 U/L (39-117); Anion Gap 12 (12-20); Aspartate Amino Transferase 16 U/L (5-37); Bilirubin Total 0.2 mg/dL (0.0-1.0); Blood Urea Nitrogen 13 mg/dL (9-16); Calcium 8.7 mg/dL (8.4-10.2); Carbon Dioxide 27 mmol/L (22-29); Chloride 104 mmol/L (96-108); Creatinine Clr Calc Pharmacy 148.4; Estimated Glomerular Filt Rate > 60; Glucose Random 90 mg/dL (60-115); Sodium 139 mmol/L (135-145); Total Protein 5.7 g/dL (6.5-8.0)
[2021-08-14] MEDS: dexAMETHasone sod phosphate/NS 12 MG/50 ML PIGGYBACK 200 MG IV (11:01)
[2021-08-14] MEDS: Fosaprepitant Dimeglumine 150 MG in 0.9 % Sodium Chloride 145 ML 300 MG IV (11:02)
--- NOTE | 2021-08-14 12:03 | MHC.HEMONC ---
pt tolerated first chemo treatment well. educated on when to take dex and zofran and to refrain from cold. The lab called to report pt has funny blood CBC takes a long time to results. it was suggested to pt that he could come the day before for lab draw. he will think about that option
[2021-08-16] MEDS: Heparin Sodium,Porcine Flush 500 UNIT/5 ML SYRINGE IVFLUSH (13:12)
[2021-08-16 13:18] VITALS: BP 107/70; PULSE 66; TEMP 36.2; O2SAT 99
== END 2021-08-21 15:54 | disposition home or self-care (01) ==
LOC: HO.ONC 14:00
PROVIDERS: PCP Internal Medicine; Visit Provider Internal Medicine Medical Oncology
DX: Z51.11 Encounter for antineoplastic chemotherapy (principal); C20 Malignant neoplasm of rectum
CPT/HCPCS: 36415; 80053; 85025; 96366; 96367; 96368; 96375; 96409; 96411; 96413; 96415; 96416; 96523; 99214; J0640; J1100; J1453; J1642; J2405; J9190; J9263